=== PATIENT | female | born 1960 | race Caucasian/White ===

== ENCOUNTER → 2016-06-19 | Outpatient (CLI) | payer OTHER ==
[~2016-06-19] MED LIST: MELO7.5T5 PO; PANT40TA PO
[2016-06-19 13:36] LABS: ESTIMATED AVERAGE GLUCOSE 126 mg/dl; HA1C FLAG Normal (Normal)
[2016-06-19 17:54] LABS: ALT/SGPT 94 U/L (12-78); BLOOD UREA NITROGEN 19 mg/dl (7-18); BUN/CREATININE RATIO 24.1 (10-20); CALCIUM 9.4 mg/dl (8.5-10.1); CARBON DIOXIDE 24 mmol/L (21-32); CHLORIDE 104 mmol/L (98-107); CHOLESTEROL 209 mg/dl (0-200); CREATININE 0.78 mg/dl (0.60-1.20); GLUCOSE 102 mg/dl (70-99); POTASSIUM 3.9 mmol/L (3.5-5.1); SODIUM 140 mmol/L (136-145); TRIGLYCERIDES 125 mg/dl (0-150); VERY LOW DENSITY LIPOPROT CALC 25 mg/dl
[2016-06-19 18:04] LABS: ALB/GLOB RATIO 0.9 (0.9-2); ALKALINE PHOSPHATASE 79 U/L (45-117); AST/SGOT 60 U/L (15-37); CHOLESTEROL/HDL RATIO 3.6; HDL CHOLESTEROL 58 mg/dl; LDL CHOLESTEROL CALCULATED 126 mg/dl
== END | disposition home or self-care (01) ==
LOC: C.LABPBG 11:22
PROVIDERS: ATTEND Internal Medicine
DX: Z11.59 Encounter for screening for other viral diseases (principal); E04.1 Nontoxic single thyroid nodule

== ENCOUNTER → 2016-06-21 | Outpatient (CLI) | payer OTHER | END | disposition home or self-care (01) | LOC: C.LABPBG 08:44 | PROVIDERS: ATTEND Internal Medicine | DX: R94.5 Abnormal results of liver function studies (principal) ==

== ENCOUNTER → 2016-06-23 | Outpatient (CLI) | payer OTHER ==
--- NOTE | 2016-06-23 12:58 | DIAGNOSTIC IMAGING REPORT ---
ULTRASOUND RIGHT UPPER QUADRANT ABDOMEN CLINICAL HISTORY: Elevated hepatic transaminases. COMPARISON STUDY: Abdominal CT dated 01/28/2015. TECHNIQUE: Real-time, grayscale, and color flow sonography of the right upper quadrant of the abdomen was performed. Images are reviewed in the transverse and longitudinal planes. FINDINGS: Liver: The liver is enlarged and demonstrates heterogeneously increased echotexture consistent with severe hepatic steatosis. There is minimal central intrahepatic biliary ductal dilatation. The main portal vein is patent. Gallbladder: The gallbladder is surgically absent. The common bile duct measures up to 0.6 cm in diameter. Pancreas: Visualized portions of the pancreatic head and body are normal in appearance. Right kidney: Survey images of the right kidney demonstrate mild cortical atrophy. There is no hydronephrosis. Ascites: None. IMPRESSION: 1. Hepatomegaly and severe hepatic steatosis. 2. The gallbladder surgically absent. Electronically signed by: Lauro Gonzalez M.D. 06/23/2016 12:57 PM Dictated Date/Time: 06/23/2016 12:55 PM
== END | disposition home or self-care (01) ==
LOC: C.ULTRBC 12:20
PROVIDERS: ATTEND Internal Medicine
DX: R94.5 Abnormal results of liver function studies (principal); R16.0 Hepatomegaly, not elsewhere classified; K76.0 Fatty (change of) liver, not elsewhere classified; Z90.49 Acquired absence of other specified parts of digestive tract

== ENCOUNTER → 2016-08-16 | Outpatient (CLI) | payer OTHER ==
[~2016-08-16] MED LIST changes: +CHOL100010 PO; +CINNAMON PO; +CYAN10005 PO
== END | disposition home or self-care (01) ==
LOC: C.PAPS 12:06
PROVIDERS: ATTEND Obstetrics & Gynecology
DX: Z12.4 Encounter for screening for malignant neoplasm of cervix (principal); R10.32 Left lower quadrant pain

== ENCOUNTER → 2016-08-18 | Outpatient (CLI) | payer OTHER ==
--- NOTE | 2016-08-19 05:44 | PAP/PSG TECHNICIAN REPORT ---
[facility] Ware Cleaner Polysomnogram Report Study name: None Report date: 08/19/2016 Study date: 08/18/2016 Referring Physician: Dr. Sofia Kamara Name: VLAD LICONA Interpreting Physician: Chris Murillo D.O. Date of : 1960 Ware Cleaner: Jose Renee RPSGT. Sex: Female Age: 56 StudyType: PSG Weight: 209 lbs Height: 56 years, Height 5' 7" BMI: 32.73 Medications: PANTOPRAZOLE SODIUM 40 MG, VITAMIN B-COMPLEX, Patient History PATIENT HAS HISTORY OF FATIGUE, SNORING AND DAYTIME SLEEPINESS. ALSO HAS HISTORY OF CHRONIC INSOMNIA AND USUALLY TAKES NAPS DUIRNG THE DAY. SHE IS HERE TODAY FOR AN EVALUATION OF SOLE. ESS = 20 RM 8 Parameters Monitored NPSG: E1-M2, E2-M1, Fp1-M2, Fp2-M1, F3-M2, F4-M2, F4-M1, C3-M2, C4-M2, C4-M1, O1-M2, O2-M2, O2-M1, T3-M2, T4-M1, P3-M2, P4-M1, CHIN1, CHIN2, HR, EKG, Legs, PFLOW, SNOR, FLOW, CFLOW, Tidal Volume, THOR, ABDO, SpO2, PLTH, CPRESS, ETCO2 Wave, ETCO2, pH Sleep Architecture Sleep Stages Time at Lights Off 9:33:37 PM STAGES Time (min.) TST (%) Time at Lights On 5:04:07 AM Wake 86.0 -- Total Recording Time (TRT) 451.00 min. N1 13.0 4 Total Sleep Period (TSP) 415.5 min. N2 183.5 50 Total Sleep Time (TST) 364.5min. N3 88.0 24 Awake Time 86.5 min. REM 80.0 22 Wake after Sleep Onset 54.0 min. Sleep Efficiency (SE) 81 % Sleep Onset Latency (MO) 32.0 min. Number of Stage 1 Shifts None Awakenings 21 Stage Changes 85 Number of REM periods 9 REM 80.0 22 REM Latency 45.0 min. NREM 284.5 78 Body Position Analysis Supine Right Left Side Prone Vertical Total Sleep Time (min.) 171.8 88.5 169.3 257.84 0.0 0.0 Total Sleep Time (%) 29% 24% 46% 71 0% N/A% Total Sleep Time REM (min.) 18.5 4.0 57.5 None 0.0 0.0 Total Sleep Time NREM (min.) 88.2 84.5 111.8 None 0.0 0.0 Intermittent Wake (min.) 65.1 9.6 11.3 None 0.0 0.0 Total Sleep Period (%) 34% None None None None None Arousals Myoclonus (PLM) * Events Count Index Events Count Index Spontaneous 23 4 Events Awake (PLMW) 118 82.3 Respiratory 5 0.8 Events Asleep w/ Arousal (PLMA) 25 4.1 PLM 24 4 Events Asleep w/o Arousal (PLMS) 80 13.2 Snoring 2 0 Total Asleep 105 17.3 Total 54 9 Total 223 30 Respiratory Analysis * CA OA MA CH H RERA Total Count 0 1 0 0 27 1 28 Index 0.0 0.2 0.0 0 4.4 0 4.8 Mean Duration 0.0 11.6 0.0 0.00 17.7 18.8 17.6 Longest Duration 0.0 11.6 0.0 0.00 0.0 18.8 24.7 Respiratory Event Summary Total Supine ~Supine Right Left Prone REM NREM Apneas Count 1 1 0 0 0 N/A 0 1 Index 0.2 1 0 0.0 0.0 N/A 0 0 Hypopneas (4% Desat) Count 27 18 9 0 9 N/A 16 11 Index 4.4 10.1 2 0.0 3.2 N/A 12.0 2.3 Apneas & All Hypopneas Count 28 19 9 0 9 N/A 16 12 Index 4.6 11 2 0 3 N/A 12.0 2.5 Respiratory Events (Heel Varnisher+All Hyp+RERA) Count 28 19 10 0 10 N/A 16 12 Index 4.8 11 2 0.0 3.5 N/A 12.0 2.7 Respiratory Related Arousal Count 5 19 2 0 2 N/A 1 4 Index 0.8 2 0 0 1 N/A 1 1 Snoring Analysis Supine Right Left Prone REM NREM Total Snore duration 1.6 min Snores count 7 1 25 N/A 15 18 33 Snore mean duration 2.8 Sec Snores index 4 1 9 N/A 11.3 3.8 5.4 TST with snoring (%) 0.4% Desaturation Event Summary: Minimum %SpO2 Event Count Mean/Min/Max Duration(sec.) Desaturation Index % Time In Bed > 90 30 33.4 / 16.0 / 60.0 4.4 90.2 86 - 90 1 11.5 / 11.5 / 11.5 1.4 9.7 81 - 85 0 N/A 0.0 0.1 76 - 80 0 N/A 0.0 0.0 71 - 75 0 N/A 0.0 0.0 66 - 70 0 N/A 0.0 0.0 61 - 65 0 N/A 0.0 0.0 56 - 60 0 N/A 0.0 0.0 51 - 55 0 N/A 0.0 0.0 < 50 0 N/A 0.0 0.0 Total REM NREM Awake <50% 0.0 min. 0.0 min. 0.0 min. 0.0 min. 51 - 60% 0.0 min. 0.0 min. 0.0 min. 0.0 min. 61 - 70% 0.0 min. 0.0 min. 0.0 min. 0.0 min. 71 - 80% 0.0 min. 0.0 min. 0.0 min. 0.0 min. 81 - 90% 44.3 min. 7.1 min. 34.1 min. 3.1 min. 91 - 100% 406.0 min. 72.9 min. 250.4 min. 82.7 min. Average 92 93 92 92 Minimum SpO2 82 82 85 83 Desaturation Event Index 4.1 11.3 2.7 2.1 # Desat. Events below 89% 8 3 4 1 Time(%) with Saturation below 89% 0.6 0.4 0.2 0.1 Time(min.) with Saturation below 89% 2.9 1.6 1.0 0.3 Time (mins) REM (mins) NREM (mins) % of TST SpO2 Below 90% 21 8 N13 2.7 SpO2 Below 88% 3 0 0 0 Heart Rate Analysis Min (bpm) Max (bpm) Average (bpm) Awake 43 96 53 NREM 41 91 50 REM 45 85 54 Overall 41 91 51 Supplemental O2 Values Minimum O2 level: None Value Start Time End Time Ware Cleaner Comments Ms. Licona slept in the right, left and supine positions. No cardiac arrhythmia noted. Leg movements noted. No bruxism noted. Snoring was noted and scored as a 1 on a scale of 1 through 5. (0=no snoring, 5=snoring loud enough to be heard through a closed door or down the [address] way) Ms. Licona awoke to use the restroom 0 time during the night. Ms. Licona stated I slept as well as I do when I am in my own bed. The final report will be interpreted and signed by a sleep physician. The completed physician report will then be placed in the patient medical record. Therapy (cm H2O) 0 TIB (min.) 450.5 TST (min.) 364.5 Sleep Onset (min.) 32.0 REM Onset From Sleep (min.) 45.0 Sleep Efficiency % 81 Wakefulness (%) 19 Wakefulness (min.) 86.5 NREM 1 (%) 4 NREM 1 (min.) 13.0 NREM 2 (%) 50 NREM 2 (min.) 183.5 NREM 3 (%) 24 NREM 3 (min.) 88.0 REM (%) 22 REM (min.) 80.0 # Arousals 54 Arousal Index 9 # Snore 33 Snore Index 5.4 AHI 4.6 AHI Supine 11 AHI Non-Supine 2 NREM AHI 2.5 REM AHI 12.0 RDI 4.8 # Obstructive Apnea 1 # Central Apnea 0 # Mixed Apnea 0 # Hypopneas 27 RERAs 1 Total Respiratory Events 29 Time Below SpO2 89% (min.) 2.6 Mean NREM SpO2 (%) 92 Mean REM SpO2 (%) 93 Mean Sleep SpO2 (%) 92 Min NREM SpO2 (%) 85 Min REM SpO2 (%) 82 Position Supine (min.) 171.8 Position Non-supine (min.) 257.8 LM Index Sleep 17.3 LM Index NREM 13.9 LM Index REM 29.3 Mean Heart Rate (bpm) 51 Min Heart Rate (bpm) 41
--- NOTE | 2016-08-22 02:09 | POLYSOMNOGRAPH REPORT ---
REFERRING PHYSICIAN: Dr. Greg Kamara. CLINICAL DATA: The patient is a 56-year-old female, who has complaints of fatigue, snoring, and excessive daytime somnolence. She completed the [place] sleepiness scale and had a score of 20, which would suggest severe daytime somnolence. There is also a history of chronic insomnia. This was an in-lab sleep study. SLEEP ARCHITECTURE: The total sleep period was 415.5 minutes. The total sleep time was 364.5 minutes. The sleep efficiency was mildly reduced at 81%. Sleep onset latency was 32 minutes. Wake after sleep onset was 54 minutes. Sleep consisted of stage N1 4%, stage N2 50%, stage N3 24%, stage REM 22%. AROUSAL DATA: The patient had a total of 54 arousals, including 23 spontaneous arousals, 5 respiratory arousals, 24 PLM arousals, and 2 snoring arousals. The arousal index is 9. PLM DATA: The patient had 105 periodic limb movements of sleep for an index of 17.3. There were 25 arousals for a PLM arousal index of 4.1. She also had 118 limb movements during wake. EKG: The underlying cardiac rhythm was normal sinus. The cardiac rates ranged from 41-91 beats per minute with an average of 51 beats per minute. No arrhythmias were noted. RESPIRATORY DATA: The patient had a total of 28 respiratory events, including 1 obstructive apnea and 27 hypopneas. Hypopneas were scored by the 4% desaturation rule. The apnea-hypopnea index was 4.6 events per hour, which is at the upper limits of normal. This would not suggest significant sleep apnea. The apnea was 11.6 seconds in length. The mean duration of the hypopneas was 17.7 seconds. OXIMETRY DATA: The patient's average saturation was 92%. The minimum saturation was 82%. There were just transient desaturations with a total of 2.9 minutes less than 89%. ANALYTICAL STATISTICIAN'S COMMENTS: Ms. Licona slept in the right, left, and supine positions. Leg movements were noted. No bruxism noted. Snoring was noted and scored as a 1 on a scale of 1 through 5. IMPRESSION: 1. Primary snoring. 2. Periodic limb movement disorder. 3. Insomnia, by history. COMMENTS: This study showed no significant sleep apnea. She did have a moderate number of limb movements with a small number of arousals. It is unlikely the leg movements are the primary cause of her daytime somnolence. Clinical correlation may need to be done in this regard. It is unknown if she has symptoms to suggest restless legs in the evening. The patient did have some difficulty initiating sleep. She only had approximately 1 minute of sleep in the first hour of the night. It is unknown if the patient practices good sleep hygiene. It does not appear that she is taking any medicines that would contribute to daytime sleepiness. RECOMMENDATIONS: 1. The patient should be advised of the appropriate principles of sleep hygiene. This would include allowing approximately 7.5 hours of sleep time per night and having a fairly regular sleep-wake schedule. 2. Consideration is given to having the patient complete sleep logs for approximately 2 weeks to evaluate her sleep habits. 3. She does have an elevated body mass index of 32.73. A weight reduction program would be advised. Typically one has less respiratory events and snoring following weight loss. 4. Other medical reasons for excessive daytime somnolence could be sought for. This is deferred to her primary physician. ANYI
== END | disposition home or self-care (01) ==
LOC: C.NEUR 20:00
PROVIDERS: ATTEND Internal Medicine
DX: F51.04 Psychophysiologic insomnia (principal); R06.83 Snoring

== ENCOUNTER → 2016-11-23 | Outpatient (CLI) | payer OTHER ==
[~2016-11-23] MED LIST changes: -CHOL100010 PO; -CINNAMON PO; -CYAN10005 PO
[2016-11-23 12:52] LABS: ESTIMATED AVERAGE GLUCOSE 120 mg/dl; HA1C FLAG Normal (Normal)
[2016-11-23 13:07] LABS: ALKALINE PHOSPHATASE 69 U/L (45-117); ALT/SGPT 33 U/L (12-78); AST/SGOT 18 U/L (15-37); BLOOD UREA NITROGEN 18 mg/dl (7-18); CALCIUM 9.1 mg/dl (8.5-10.1); CARBON DIOXIDE 29 mmol/L (21-32); CHLORIDE 108 mmol/L (98-107); CHOLESTEROL 214 mg/dl (0-200); CREATININE 0.85 mg/dl (0.60-1.20); GLUCOSE 101 mg/dl (70-99); POTASSIUM 3.8 mmol/L (3.5-5.1); SODIUM 142 mmol/L (136-145)
[2016-11-23 13:10] LABS: ALB/GLOB RATIO 0.9 (0.9-2); CHOLESTEROL/HDL RATIO 3.5; HDL CHOLESTEROL 61 mg/dl; LDL CHOLESTEROL CALCULATED 133 mg/dl; TRIGLYCERIDES 102 mg/dl (0-150); VERY LOW DENSITY LIPOPROT CALC 20 mg/dl
== END | disposition home or self-care (01) ==
LOC: C.LABPBG 07:46
PROVIDERS: ATTEND Internal Medicine
DX: R94.5 Abnormal results of liver function studies (principal); R10.32 Left lower quadrant pain; R73.09 Other abnormal glucose

== ENCOUNTER → 2016-11-27 | Outpatient (CLI) | payer OTHER ==
--- NOTE | 2016-11-27 10:28 | DIAGNOSTIC IMAGING REPORT ---
GI SERIES W/AIR ROUTINE CLINICAL HISTORY: ABDOMINAL CRAMPINGpain. Dysphagia. COMPARISON STUDY: None FLUOROSCOPY TIME: 2 minutes. FINDINGS: Patient initiates swallowing function well. Esophagus is normal in course and caliber. Gastroesophageal junction is unremarkable. Size and configuration stomach are normal. The duodenal bulb fills well and is negative for ulceration. Duodenal sweep is unremarkable. IMPRESSION: Negative study The above report was generated using voice recognition software. It may contain grammatical, syntax or spelling errors. Electronically signed by: Robbie Larios M.D. 11/27/2016 10:27 AM Dictated Date/Time: 11/27/2016 10:26 AM
--- NOTE | 2016-11-27 10:42 | DIAGNOSTIC IMAGING REPORT ---
ABDOMEN COMPLETE (US) HISTORY: Pain. Nausea. R10.9 Abdominal [id number]. COMPARISON: 06/23/2016 FINDINGS: Pancreas: The pancreas demonstrates a normal echotexture. Liver: Fatty infiltration. Gallbladder: Surgically absent CBD: 6 mm Kidneys: No hydronephrosis. Spleen: Mild prominence of 14 cm Aorta: Normal in caliber. IVC: Patent. IMPRESSION: 1. Fatty infiltration of liver. 2. Prior cholecystectomy. 3. Mild splenomegaly. The above report was generated using voice recognition software. It may contain grammatical, syntax or spelling errors. Electronically signed by: Robbie Larios M.D. 11/27/2016 10:41 AM Dictated Date/Time: 11/27/2016 10:37 AM
== END | disposition home or self-care (01) ==
LOC: C.ULTR 08:51
PROVIDERS: ATTEND Internal Medicine
DX: R10.9 Unspecified abdominal pain (principal); K76.0 Fatty (change of) liver, not elsewhere classified

== ENCOUNTER → 2017-01-04 | Outpatient (CLI) | payer OTHER ==
--- NOTE | 2017-01-04 12:39 | DIAGNOSTIC IMAGING REPORT ---
KUB CLINICAL HISTORY: K52.9 Chronic [id number] pain. Bowel change. COMPARISON STUDY: No previous studies for comparison. FINDINGS: The soft tissues, psoas shadows, renal outlines and intestinal gas pattern appear normal. There is no evidence for bowel obstruction. No abnormal abdominal calcifications are seen. IMPRESSION: Normal study. The above report was generated using voice recognition software. It may contain grammatical, syntax or spelling errors. Electronically signed by: Robbie Larios M.D. 01/04/2017 12:38 PM Dictated Date/Time: 01/04/2017 12:37 PM
[2017-01-08 06:38] LABS: IGA SERUM 219 mg/dL (81-463); TIS TRANS IGA 1 U/mL (<4)
== END | disposition home or self-care (01) ==
LOC: C.RAD1850 11:28
PROVIDERS: ATTEND Registered Nurse
DX: K52.9 Noninfective gastroenteritis and colitis, unspecified (principal)

== ENCOUNTER 2017-03-11 10:48 | Emergency (ER) | payer OTHER ==
[~2017-03-11] VITALS: Ht 167.6 cm; Wt 89.4 kg
[~2017-03-11 10:48] MED LIST changes: +CHOL100010 PO; +CINNAMON PO; -MELO7.5T5 PO
[2017-03-11 11:09] VITALS: BP 126/76; PULSE 83; TEMP 37; O2SAT 95; Ht 167.6 cm; Wt 89.4 kg
--- NOTE | 2017-03-11 11:25 | EMERGENCY ROOM VISIT NOTE ---
ED Visit Note First contact with patient: 11:15 CHIEF COMPLAINT: Tick in the right groin HISTORY OF PRESENT ILLNESS: Patient is a 57-year-old white female who presents to the emergency department for evaluation of a tick embedded in the right groin. She noticed it this morning when she was getting out of the shower. She was in her shot yesterday getting [employer] decorations, and believes that is when the tick was able to get on her. When she noticed it this morning, she covered it with Vaseline and a Band-Aid. It has been on for less than 24 hours. REVIEW OF SYSTEMS: Review of systems as per HPI. All other systems reviewed were negative. At least 3 systems reviewed. PMH: Electronic medical records are reviewed and summarized as above/below. See Problem List. SOCIAL HISTORY: Patient lives at home. PHYSICAL EXAM: There is an intact tick on the right inguinal. There is a small zone of inflammation around it. EMERGENCY DEPARTMENT COURSE: The intact tick was removed with the Tick Twister device. Bacitracin and bandaid were applied. The patient tolerated the procedure well. She does not require antibiotic prophylaxis. Medication reconciliation: I attest that I have personally reviewed the patient' s current medication list. Blood pressure screening : Patient was found to have normal blood pressure on screening and does not require follow-up. Problem List Medical Problems: (1) Fibroid Status: Resolved (2) Intractable back pain Status: Resolved (3) Kidney stone Status: Resolved (4) Menorrhagia Status: Resolved (5) Reflux Esophagitis Status: Chronic (6) Right flank pain Status: Resolved (7) Right ovarian cyst Status: Resolved Surgical Problems: (1) History of cholecystectomy Status: Resolved (2) Tubal Ligation Status Status: Resolved Current/Historical Medications Scheduled Cholecalciferol (Vitamin D), 1 TAB PO QAM Pantoprazole (Protonix), 40 MG PO QAM [Cinnamon], 1,000 MG PO QAM Allergies Coded Allergies: Penicillins (Verified Allergy, Severe, HIVES TONGUE SWELLING, 02/26/17) Sulfa Antibiotics (Verified Allergy, Severe, HIVES SWELLING OF TONGUE, ) Amoxicillin (Verified Allergy, Unknown, BLISTER AND TONGUE SWELLS, ) Vital Signs Date Time Temp Pulse Resp B/P (MAP) Pulse Ox O2 Delivery O2 Flow Rate FiO2 03/11/17 11:09 37.0 83 18 126/76 95 Room Air Departure Information Impression Primary Impression: Tick bite Referrals Greg Kamara M.D. (PCP) Patient Instructions My [facility] Additional Instructions Keep antibiotic ointment on bite site for 2 days. Use Ibuprofen or Tylenol as needed for pain/discomfort. Watch for signs of infection; increasing redness and swelling, pus like drainage or fevers. Follow up with family physician for continued care and treatment; rashes, bullet lesion, muscle or joint pain or any signs of infection.
[2017-03-12] MEDS ORDERED: CYAN10005 PO (10:35)
[2017-03-12] MEDS ORDERED: LIDOCAINE HCL 2% 2 ML VIAL (20MG/ML) ONE (11:30)
[2017-03-12] MEDS ORDERED: MIDAZOLAM HCL 1 MG/ML 2ML VIAL ONE (11:30)
[2017-03-12] MEDS ORDERED: PROPOFOL IV EMULSION 10 MG/ML 20 ML VIAL IV ONE (11:30)
== END 2017-03-11 11:31 | disposition home or self-care (01) ==
LOC: C.EDB 10:49 → C.EDD 11:31
DX: S30.861A Insect bite (nonvenomous) of abdominal wall, initial encounter (principal); W57.XXXA Bitten or stung by nonvenomous insect and other nonvenomous arthropods, initial encounter; K21.0 Gastro-esophageal reflux disease with esophagitis; Z87.442 Personal history of urinary calculi; Z90.49 Acquired absence of other specified parts of digestive tract; Z98.51 Tubal ligation status; Z79.899 Other long term (current) drug therapy

== ENCOUNTER → 2017-03-12 | Day surgery (SDC) | payer OTHER ==
[2017-02-26 11:25] VITALS: Ht 170.2 cm; Wt 88.6 kg
[~2017-03-12] VITALS: Ht 170.2 cm; Wt 88.6 kg
[~2017-03-12] MED LIST changes: +CYAN10005 PO; +SODIUM CHLORIDE 0.9% 500ML 500 ML IV ONE
--- NOTE | 2017-03-12 11:19 | Endo History and Physical ---
History & Physical Date of Service: Mar 12, 2017. Chief Complaint: Abdominal cramping, diarrhea Referring Physician: Dr. Greg Kamara History of Present Illness 57 yo CF who presents for colonoscopy secondary to abdominal pain and diarrhea. Past Medical History Reflux Past Surgical History Hx Cardiac Surgery: No Hx Internal Defibrillator: No Hx Pacemaker: No Hx Abdominal Surgery: Yes (ALE, TUBAL LIGATION, D&C) Hx of Implantable Prosthesis: No Hx Post-Op Nausea and Vomiting: No Hx Cancer Surgery: No Hx Thoracic Surgery: No Hx Orthopedic: No Hx Urinary Tract Surgery: Yes (CYSTOSCOPY AND STONE REMOVAL) Family History IBD Social History Smoking Status: Never Smoker Hx Substance Use: No Hx Alcohol Use: Yes (OCCASIONALLY) Allergies Coded Allergies: Penicillins (Verified Allergy, Severe, HIVES TONGUE SWELLING, 02/26/17) Sulfa Antibiotics (Verified Allergy, Severe, HIVES SWELLING OF TONGUE, ) Amoxicillin (Verified Allergy, Unknown, BLISTER AND TONGUE SWELLS, ) Current Medications Reported Home Medications Medications Dose Route/Sig Max Daily Dose Days Date Category Vitamin B-12 (Cyanocobalamin) 1,000 Mcg Tab 1,000 Mcg PO DAILY 03/12/17 Reported [Cinnamon] 1,000 Mg PO QAM 02/26/17 Reported Protonix (Pantoprazole Sodium) 40 Mg Tab 40 Mg PO QAM 09/01/14 Reported Vital Signs Weight (Kilograms): 88.64 Height (Feet): 5 Height (Inches): 7 Date Time Temp Pulse Resp B/P (MAP) Pulse Ox O2 Delivery O2 Flow Rate FiO2 03/12/17 10:41 36.9 68 18 145/81 (102) 97 Room Air Physical Exam General Appearance: WD/WN, no apparent distress Respiratory/Chest: Auscultation: breath sounds normal Cardiovascular: Heart Auscultation: RRR Abdomen: Bowel Sounds: normal Inspection & Palpation: soft, non-distended, no tenderness, guarding & rebound Assessment and Plan Assessment: 57 yo CF who presents for colonoscopy secondary to abdominal pain and diarrhea. Plan: Proceed with colonoscopy.
[2017-03-12 12:22] VITALS: BP 129/78; PULSE 60; O2SAT 98
--- NOTE | 2017-03-12 12:25 | GI REPORT ---
Procedure Date: 03/12/2017 11:01 AM Procedure: Colonoscopy Indications: Generalized abdominal pain, Chronic diarrhea Medicines: Monitored Anesthesia Care Complications: No immediate complications. Estimated Blood Loss: Estimated blood loss: none. Procedure: Pre-Anesthesia Assessment: - Prior to the procedure, a History and Physical was performed, and patient medications and allergies were reviewed. The patient's tolerance of previous anesthesia was also reviewed. The risks and benefits of the procedure and the sedation options and risks were discussed with the patient. All questions were answered, and informed consent was obtained. Prior Anticoagulants: The patient has taken no previous anticoagulant or antiplatelet agents. ASA Grade Assessment: II - A patient with mild systemic disease. After reviewing the risks and benefits, the patient was deemed in satisfactory condition to undergo the procedure. After I obtained informed consent, the scope was passed under direct vision. Throughout the procedure, the patient's blood pressure, pulse, and oxygen saturations were monitored continuously. The scope was introduced through the anus and advanced to the terminal ileum. The colonoscopy was performed without difficulty. The patient tolerated the procedure well. The quality of the bowel preparation was good. The terminal ileum, ileocecal valve, appendiceal orifice, and rectum were photographed. Findings: The perianal and digital rectal examinations were normal. A 4 mm polyp was found in the ascending colon. The polyp was sessile. The polyp was removed with a cold snare. Resection and retrieval were complete. Multiple small-mouthed diverticula were found in the sigmoid colon. Non-bleeding internal hemorrhoids were found during retroflexion. The hemorrhoids were small. Several random biopsies were obtained with cold forceps for histology in the entire colon. Fluid aspiration for cytology was performed in the entire colon. Impression: - One 4 mm polyp in the ascending colon, removed with a cold snare. Resected and retrieved. - Diverticulosis in the sigmoid colon. - Non-bleeding internal hemorrhoids. - Several random biopsies were obtained in the entire colon. - Fluid aspiration was performed. Recommendation: - Resume previous diet. - Continue present medications. - Repeat colonoscopy for surveillance based on pathology results. - Return to primary care physician as previously scheduled. Jovanni Hull DO 03/12/2017 12:25:21 PM This report has been signed electronically. Note Initiated On: 03/12/2017 11:01 AM I attest to the content of the Intraoperative Record and orders documented therein, exceptions below
--- NOTE | 2017-03-12 12:35 | Discharge Instructions ---
Endoscopy Patient Instructions Date / Procedure(s) Performed Mar 12, 2017. Colonoscopy Allergy Information Coded Allergies: Penicillins (Verified Allergy, Severe, HIVES TONGUE SWELLING, 02/26/17) Sulfa Antibiotics (Verified Allergy, Severe, HIVES SWELLING OF TONGUE, ) Amoxicillin (Verified Allergy, Unknown, BLISTER AND TONGUE SWELLS, ) Discharge Date / Findings Mar 12, 2017. Random colon biopsies Stool aspirate collected Colon polyp Diverticulosis Internal hemorrhoids Medication Instructions OK to resume all medications today as prescribed Reported Home Medications Medications Dose Route/Sig Max Daily Dose Days Date Category Vitamin B-12 (Cyanocobalamin) 1,000 Mcg Tab 1,000 Mcg PO DAILY 03/12/17 Reported [Cinnamon] 1,000 Mg PO QAM 02/26/17 Reported Protonix (Pantoprazole Sodium) 40 Mg Tab 40 Mg PO QAM 09/01/14 Reported Provider Instructions Activity Restrictions - No exercising or heavy lifting for 24 hours. - Do not drink alcohol the day of the procedure. - Do not drive a car or operate machinery until the day after the procedure. - Do not make any important decisions or sign important papers in 24 hours after the procedure. Following Day: - Return to full activity which may include returning to work/school. Diet Start your diet with liquids and light foods (jello, soup, juice, toast). Then eat your usual diet if not nauseated. Treatment For Common After Affects For mild abdominal pain, bloating, or excessive gas: - Rest - Eat lightly - Lie on right side Follow-Up Information Follow-up with Dr. Greg Kamara as scheduled Anesthesia Information What You Should Know You have had a procedure that required some medicine to reduce anxiety and discomfort. This treatment is called moderate sedation. After receiving the treatment, you may be sleepy, but you will be able to breathe on your own. The effects of the treatment may last for several hours. Follow these instructions along with Activity/Diet recommendations noted above: * Do NOT do anything where dizziness or clumsiness would be dangerous. * Rest quietly at home today, then you can be up and about tomorrow. * Have a responsible person stay with you the rest of today. * You may have had an I.V. today. If so, you may take the dressing off later today. Recommendations Call your doctor if: * Trouble breathing * Continuous vomiting for more than 24 hours * Temperature above 101 degrees * Severe abdominal pain or bloating * Pain not relieved by pain medicine ordered * There is increased drainage or redness from any incision * A large amount of rectal bleeding greater than 2-3 tablespoons. (If you had a polyp/s removed or have hemorrhoids, a small amount of blood - from the rectum is to be expected.) * You have any unanswered questions or concerns. IN THE EVENT OF A SERIOUS EMERGENCY, GO TO THE NEAREST EMERGENCY ROOM Your discharge instructions were prepared by provider Jovanni Hull. Patient Instructions Signature Page Lindsay Licona Patient (or Guardian) Signature/Date: I have read and understand the instructions given to me by my caregivers. Caregiver/RN/Doctor Signature/Date: The above-named patient and/or guardian has received patient instructions on this date. + Original Patient Signature Page (only) stays with chart. Please make copy for patient.
--- NOTE | 2017-03-12 12:46 | Anesthesiology Progress Note ---
Anesthesia Post Op Note Date & Time Mar 12, 2017 at 12:45 Vital Signs Pain Intensity: 0 Vital Signs Past 12 Hours Date Time Temp Pulse Resp B/P (MAP) Pulse Ox O2 Delivery O2 Flow Rate FiO2 03/12/17 12:22 60 20 129/78 (95) 98 Room Air 03/12/17 12:08 66 18 138/90 (106) 99 Room Air 03/12/17 11:51 74 16 134/84 (101) 98 Room Air 03/12/17 10:41 36.9 68 18 145/81 (102) 97 Room Air Notes Mental Status: alert / awake / arousable, participated in evaluation Pt Amnestic to Procedure: Yes Nausea / Vomiting: adequately controlled Pain: adequately controlled Airway Patency, RR, SpO2: stable & adequate BP & HR: stable & adequate Hydration State: stable & adequate Anesthetic Complications: no major complications apparent
== END | disposition home or self-care (01) ==
LOC: C.GI 10:12
PROVIDERS: ATTEND Internal Medicine
DX: R10.84 Generalized abdominal pain (principal); K52.9 Noninfective gastroenteritis and colitis, unspecified; D12.2 Benign neoplasm of ascending colon; K57.30 Diverticulosis of large intestine without perforation or abscess without bleeding; K64.8 Other hemorrhoids; Z88.0 Allergy status to penicillin; Z88.2 Allergy status to sulfonamides; Z90.49 Acquired absence of other specified parts of digestive tract; Z98.51 Tubal ligation status; Z79.899 Other long term (current) drug therapy; Z98.41 Cataract extraction status, right eye; Z98.42 Cataract extraction status, left eye

== ENCOUNTER → 2017-04-20 | Outpatient (CLI) | payer OTHER ==
[~2017-04-20] MED LIST changes: -CHOL100010 PO; +CHOL2000 PO; +CIPR-255 PO; +ESCI1TAB10 PO; +OMEG-128 PO; -SODIUM CHLORIDE 0.9% 500ML 500 ML IV ONE
== END | disposition home or self-care (01) ==
LOC: C.LABPBG 09:46
PROVIDERS: ATTEND Internal Medicine
DX: N39.0 Urinary tract infection, site not specified (principal)

== ENCOUNTER → 2017-05-25 | Outpatient (CLI) | payer OTHER ==
[~2017-05-25] MED LIST changes: -CHOL2000 PO; -CIPR-255 PO; -ESCI1TAB10 PO; -OMEG-128 PO
--- NOTE | 2017-05-26 05:40 | PAP/PSG TECHNICIAN REPORT ---
[facility] Shareholder Polysomnogram Report Study name: None Report date: 05/26/2017 Study date: 05/25/2017 Referring Physician: Dr. Chris Murillo DO Name: VLAD LICONA Interpreting Physician: Chris Murillo D.O. Date of : 1960 Shareholder: LOIS Jeter. Sex: Female Age: 57 StudyType: PSG Weight: 199.2 lbs Height: 57 years, Height 209' 0" Neck Circum:15.5inches BMI: Medications: Esomeprazole Magnesium 40mg, Vit B Complex Patient History Study started on room air with no ETCO2 monitoring in room #8. 57 yr old female here tonight for a diagnostic psg. She complains of EDS. She has a family history of SOLE. Her ESS=16/24. Neck circ=15.5inches Parameters Monitored NPSG: E1-M2, E2-M1, Fp1-M2, Fp2-M1, F3-M2, F4-M2, F4-M1, C3-M2, C4-M2, C4-M1, O1-M2, O2-M2, O2-M1, T3-M2, T4-M1, P3-M2, P4-M1, CHIN1, CHIN2, HR, EKG, Legs, PFLOW, SNOR, FLOW, CFLOW, Tidal Volume, THOR, ABDO, SpO2, PLTH, CPRESS, ETCO2 Wave, ETCO2, pH Sleep Architecture Sleep Stages Time at Lights Off 10:22:56 PM STAGES Time (min.) TST (%) Time at Lights On 5:25:56 AM Wake 42.5 -- Total Recording Time (TRT) 423.00 min. N1 21.0 6 Total Sleep Period (TSP) 402.5 min. N2 212.0 56 Total Sleep Time (TST) 380.5min. N3 72.0 19 Awake Time 42.5 min. REM 75.5 20 Wake after Sleep Onset 24.0 min. Sleep Efficiency (SE) 90 % Sleep Onset Latency (MO) 18.5 min. Number of Stage 1 Shifts None Awakenings 25 Stage Changes 106 Number of REM periods 11 REM 75.5 20 REM Latency 80.5 min. NREM 305.0 80 Body Position Analysis Supine Right Left Side Prone Vertical Total Sleep Time (min.) 135.3 95.3 177.8 273.09 0.0 0.0 Total Sleep Time (%) 28% 25% 47% 72 0% N/A% Total Sleep Time REM (min.) 0.0 38.0 37.5 None 0.0 0.0 Total Sleep Time NREM (min.) 107.4 57.3 140.3 None 0.0 0.0 Intermittent Wake (min.) 27.9 6.0 8.6 None 0.0 0.0 Total Sleep Period (%) 30% None None None None None Arousals Myoclonus (PLM) * Events Count Index Events Count Index Spontaneous 7 1 Events Awake (PLMW) 49 69.2 Respiratory 5 0.8 Events Asleep w/ Arousal (PLMA) 37 5.8 PLM 34 6 Events Asleep w/o Arousal (PLMS) 108 17.0 Snoring 3 0 Total Asleep 145 22.9 Total 49 8 Total 194 28 Respiratory Analysis * CA OA MA CH H RERA Total Count 0 0 0 0 12 3 12 Index 0.0 0.0 0.0 0 1.9 0 2.4 Mean Duration 0.0 0.0 0.0 0.00 16.3 18.7 16.8 Longest Duration 0.0 0.0 0.0 0.00 0.0 23.0 38.9 Respiratory Event Summary Total Supine ~Supine Right Left Prone REM NREM Apneas Count 0 0 0 0 0 N/A 0 0 Index 0.0 0 0 0.0 0.0 N/A 0 0 Hypopneas (4% Desat) Count 12 1 11 4 7 N/A 5 7 Index 1.9 0.6 2 2.5 2.4 N/A 4.0 1.4 Apneas & All Hypopneas Count 12 1 11 4 7 N/A 5 7 Index 1.9 1 2 3 2 N/A 4.0 1.4 Respiratory Events (Research/Program Director+All Hyp+RERA) Count 12 2 13 5 8 N/A 5 7 Index 2.4 1 3 3.1 2.7 N/A 4.8 1.8 Respiratory Related Arousal Count 5 2 4 2 2 N/A 2 3 Index 0.8 1 1 1 1 N/A 2 1 Snoring Analysis Supine Right Left Prone REM NREM Total Snore duration 3.6 min Snores count 88 18 23 N/A 11 118 129 Snore mean duration 1.7 Sec Snores index 49 11 8 N/A 8.7 23.2 20.3 TST with snoring (%) 1.0% Desaturation Event Summary: Minimum %SpO2 Event Count Mean/Min/Max Duration(sec.) Desaturation Index % Time In Bed > 90 16 20.5 / 10.0 / 60.0 2.5 90.9 86 - 90 6 15.0 / 9.3 / 31.0 9.4 9.1 81 - 85 0 N/A 0.0 0.0 76 - 80 0 N/A 0.0 0.0 71 - 75 0 N/A 0.0 0.0 66 - 70 0 N/A 0.0 0.0 61 - 65 0 N/A 0.0 0.0 56 - 60 0 N/A 0.0 0.0 51 - 55 0 N/A 0.0 0.0 < 50 0 N/A 0.0 0.0 Total REM NREM Awake <50% 0.0 min. 0.0 min. 0.0 min. 0.0 min. 51 - 60% 0.0 min. 0.0 min. 0.0 min. 0.0 min. 61 - 70% 0.0 min. 0.0 min. 0.0 min. 0.0 min. 71 - 80% 0.0 min. 0.0 min. 0.0 min. 0.0 min. 81 - 90% 38.5 min. 6.0 min. 28.9 min. 3.6 min. 91 - 100% 384.3 min. 69.5 min. 276.1 min. 38.8 min. Average 92 92 92 92 Minimum SpO2 88 88 88 89 Desaturation Event Index 2.4 6.4 1.4 4.2 # Desat. Events below 89% 3 1 2 N/A Time(%) with Saturation below 89% 0.1 0.0 0.1 0.0 Time(min.) with Saturation below 89% 0.4 0.0 0.4 0.0 Time (mins) REM (mins) NREM (mins) % of TST SpO2 Below 90% 11 7 N4 1.4 SpO2 Below 88% 1 0 0 0 Heart Rate Analysis Min (bpm) Max (bpm) Average (bpm) Awake 52 96 65 NREM 47 86 58 REM 51 80 60 Overall 47 86 58 Supplemental O2 Values Minimum O2 level: None Value Start Time End Time Shareholder Comments Mrs. Licona slept in the right, left and supine positions. No cardiac arrhythmia noted. PLM's were noted. No bruxism noted. Snoring was noted and scored as a 1 on a scale of 1 through 5. (0=no snoring, 5=snoring loud enough to be heard through a closed door or down the [address] way) She did not use the restroom during the night. She stated that she slept about the same as usual. She said her left leg was bothering her during the night. It was" crampy". The final report will be interpreted and signed by a sleep physician. The completed physician report will then be placed in the patient medical record. Therapy (cm H2O) 0 TIB (min.) 423.0 TST (min.) 380.5 Sleep Onset (min.) 18.5 REM Onset From Sleep (min.) 80.5 Sleep Efficiency % 90 Wakefulness (%) 10 Wakefulness (min.) 42.5 NREM 1 (%) 6 NREM 1 (min.) 21.0 NREM 2 (%) 56 NREM 2 (min.) 212.0 NREM 3 (%) 19 NREM 3 (min.) 72.0 REM (%) 20 REM (min.) 75.5 # Arousals 49 Arousal Index 8 # Snore 129 Snore Index 20.3 AHI 1.9 AHI Supine 1 AHI Non-Supine 2 NREM AHI 1.4 REM AHI 4.0 RDI 2.4 # Obstructive Apnea 0 # Central Apnea 0 # Mixed Apnea 0 # Hypopneas 12 RERAs 3 Total Respiratory Events 17 Time Below SpO2 89% (min.) 0.4 Mean NREM SpO2 (%) 92 Mean REM SpO2 (%) 92 Mean Sleep SpO2 (%) 92 Min NREM SpO2 (%) 88 Min REM SpO2 (%) 88 Position Supine (min.) 135.3 Position Non-supine (min.) 273.1 LM Index Sleep 22.9 LM Index NREM 22.4 LM Index REM 24.6 Mean Heart Rate (bpm) 58 Min Heart Rate (bpm) 47
--- NOTE | 2017-06-03 12:02 | Sleep Study ---
Sleep Study Report Date of Service: 05/25/2017 Sleep Study Report CLINICAL DATA: The patient is a 57-year-old female with a history of tiredness and excessive daytime somnolence. Her [place] Sleepiness Scale score is 16 out of a possible 24. A diagnostic sleep study was previously done 08/18/2016. This showed an apnea-hypopnea index of 4.6 which would be at the upper limits of normal. In light of the fact she has had persistent symptoms a repeat study is being done. She has a BMI of 31.19. SLEEP ARCHITECTURE: The sleep period time was 402.5 minutes. Total sleep time was 380.5 minutes. Sleep efficiency was normal at 90 percent. Sleep latency was 18.5 minutes. Wake after sleep onset was 24 minutes. The REM latency was normal at 80.5 minutes. Sleep consisted of stage N1 6 percent, stage N2 56 percent, stage N3 19 percent, stage REM 20 percent. AROUSAL DATA: The patient had 49 arousals including 7 spontaneous arousals, 5 respiratory arousals, 34 PLM arousals, and 3 snoring arousals. The arousal index was 8. PLM DATA: The patient had 145 periodic limb movements of sleep for a PLM index of 22.9. There were 37 arousals associated with limb movements for a PLM arousal index of 5.8. EKG: The cardiac rates 47-86 beats per minute. No cardiac arrhythmia noted. RESPIRATORY DATA: Patient had a total of 12 respiratory events, all hypopneas. Hypopneas were scored according to the 4 percent desaturation rule. The mean duration of the hypopneas was 16.3 seconds. She also had 3 RERAs. The apnea-hypopnea index was normal at 1.9 events per hour. This would suggest no significant sleep apnea. OXIMETRY DATA: The average saturation was 92 percent. The minimum saturation was 88 percent. There was 0.4 minutes with saturations less than 89 percent. CARD FEEDER COMMENTS: The patient slept on the right, left, and supine positions. No cardiac arrhythmia noted. PLMS were noted. No bruxism noted. Snoring was noted and scored as a 1 on a scale 1 through 5. She did not use the restroom during the night. IMPRESSIONS: 1. No evidence of significant sleep apnea 2. Periodic limb movement disorder COMMENTS: The patient once again does not show evidence of definitive sleep apnea. She had very few respiratory events. There was a modest number of limb movements. She had given a history of having some restless legs in bed. It is unclear if the limb movement disorder might be accounting for her symptoms. Consideration could be given to a trial of medication for the limb movement disorder. Likewise a serum ferritin level could be done in the event she has iron deficiency which might be causing the limb movements. RECOMMENDATIONS: 1. Consideration could be given to treatment of the underlying limb movement disorder with medications such as pramipexole. Clinical correlation would then be required to determine if this improved her sleep quality and her daytime sleepiness. 2. Consideration could be given to an evaluation of the underlying depression and or anxiety. 3. Weight loss is advised in light of the elevation of body mass index at 31.19. 4. Serum ferritin level Copies To 1: Chris Murillo DO; Greg Kamara M.D.
== END | disposition home or self-care (01) ==
LOC: C.NEUR 20:00
PROVIDERS: ATTEND Internal Medicine Pulmonary Disease
DX: G47.61 Periodic limb movement disorder (principal)

== ENCOUNTER → 2017-08-06 | Outpatient (CLI) | payer OTHER | END | disposition home or self-care (01) | LOC: C.LABPBG 10:25 | PROVIDERS: ATTEND Internal Medicine | DX: R53.83 Other fatigue (principal) ==

== ENCOUNTER → 2017-09-05 | Outpatient (CLI) | payer OTHER | END | disposition home or self-care (01) | LOC: C.LABPBG 08:44 | PROVIDERS: ATTEND Physician Assistant | DX: Z13.21 Encounter for screening for nutritional disorder (principal); R53.83 Other fatigue ==

== ENCOUNTER 2021-03-15 05:41 | Inpatient (IN) ==
--- NOTE | 2021-01-07 15:57 | PAT Medication Instructions ---
Medication Instructions Date of Service January 07, 2021 Home Medications Medication Instructions Recorded oxycodone-acetaminophen 5 mg-325 1 tab PO Q8H PRN #5 tab 01/06/21 mg tablet (Percocet) ciprofloxacin HCl 500 mg tablet 500 mg PO BID 2 Days #4 tab 01/07/21 aspirin 81 mg tablet,delayed release (Adult Aspirin Regimen) 81 mg PO QAM meloxicam 7.5 mg tablet 7.5 mg PO QAM albuterol sulfate 90 mcg/actuation aerosol inhaler 1 inh INHALATION QID PRN oxycodone-acetaminophen 5 mg-325 mg tablet (Percocet) 1 tab PO Q8H PRN pantoprazole 40 mg tablet,delayed release 40 mg PO QAM ciprofloxacin HCl 500 mg tablet 500 mg PO BID Continue as directed ciprofloxacin HCl 500 mg tablet 500 mg PO BID ASK your surgeon for instructions meloxicam 7.5 mg tablet 7.5 mg PO QAM ASK your prescriber and surgeon aspirin 81 mg tablet,delayed release (Adult Aspirin Regimen) 81 mg PO QAM Take morning of surgery With a small sip of water, OTHERWISE NOTHING TO EAT OR DRINK AFTER MIDNIGHT: albuterol sulfate 90 mcg/actuation aerosol inhaler 1 inh INHALATION QID PRN (use if needed; please bring rescue inhaler with you to hospital day of surgery if possible) oxycodone-acetaminophen 5 mg-325 mg tablet (Percocet) 1 tab PO Q8H PRN (okay to take up to 4 hours prior to surgery if needed) pantoprazole 40 mg tablet,delayed release 40 mg PO QAM Take evening before surgery albuterol sulfate 90 mcg/actuation aerosol inhaler 1 inh INHALATION QID PRN (if needed) oxycodone-acetaminophen 5 mg-325 mg tablet (Percocet) 1 tab PO Q8H PRN (if needed) Other Notes If you have any questions please call us at [phone] or [phone] or [phone] or [phone]
--- NOTE | 2021-01-11 10:32 | Anesthesiology Consultation ---
Date of Service January 11, 2021 Assessment & Plan (1) Encounter for pre-operative examination: COVID screening: Per assessment on 01/11: Travel screen negative, no known COVID- 19 positive contacts or current COVID-19 related symptoms. Surgeon arranging preop COVID testing (scheduled 01/14; [facility]). Awaiting results. Chart Review Chart Review: Acceptable Risk for Surgery and Patient seen in Pre Admission Testing Teaching & Discussion Pre-Anesthesia Teaching/Discussion Notes: Instructed NPO after midnight before surgery,except medications with 15 cc of water. Medication instructions provided according to the PAT guidelines. History Surgery Operation Date: 01/18/21 11:20 Proposed Procedures p Robotic Pyeloplasty Left - Harish Mendoza MD Height/Weight Height: 5 ft 6 in Weight: 96.615 kg Allergies Allergy/AdvReac Type Severity Reaction Status Date / Time Penicillins Allergy Severe Tongue Verified 01/07/21 15:58 swelling, hives Sulfa (Sulfonamide Allergy Severe Tongue Verified 01/07/21 15:58 Antibiotics) swelling, hives amoxicillin Allergy Unknown Tongue Verified 01/07/21 15:58 swelling, blistering Medications Home Medications Medication Instructions Recorded Confirmed Last Taken aspirin 81 mg tablet,delayed 81 mg PO QAM 12/08/19 01/09/21 01/06/21 release (Adult Aspirin Regimen) meloxicam 7.5 mg tablet 7.5 mg PO QAM 11/24/20 01/09/21 01/06/21 albuterol sulfate 90 mcg/actuation 1 inh INHALATION QID PRN 01/06/21 01/09/21 Unknown aerosol inhaler oxycodone-acetaminophen 5 mg-325 1 tab PO Q8H PRN #5 tab 01/06/21 01/09/21 01/06/21 mg tablet (Percocet) pantoprazole 40 mg tablet,delayed 40 mg PO QAM 01/06/21 01/09/21 01/06/21 release ciprofloxacin HCl 500 mg tablet 500 mg PO BID 2 Days #4 tab 01/07/21 01/09/21 01/08/21 Past Medical History Medical History Arthritis Bronchitis Seasonal hx, reason for inhaler PRN per pt, no recent issues/inhaler use Depression Hx GERD (gastroesophageal reflux disease) controlled Hypothyroidism Remote hx, euthyroid labs/no meds Kidney stone Hx Thyroid nodule s/p biopsy (benign) Exercise / Class Metabolic Activity III < 4 Walking/Shop/Light housework (one FS (no CP, no SOB)) Past Family History Family History Sister Family history of reaction to anesthesia SLOW TO WAKE UP Denies family history of Ovarian cancer Prostate cancer Breast cancer Lung cancer Colorectal cancer Past Surgical History Surgical History H/O tubal ligation History of cataract surgery R/L History of cholecystectomy History of colonoscopy History of cystoscopy with pyeloscopy with removal of calculus History of surgery Percutaneous lithotomy Past Anesthesia History No Hx of Anesthesia Complications Sister- "slow to wake" History of PONV No Hx of PONV and Hx of Motion Sickness Social History Smoking Status: Never smoker Do You Dip or Chew Tobacco: No Hx Alcohol Use: No Hx Substance Use: No Review of Systems Seasonal allergies- occasional post nasal drip. Patient denies chest pain, shortness of breath, fever, chills, cough, wheezing, palpitations. Physical Exam Vital Signs VITALS BP 148/86 P 67 TEMP 97.9 SP02 98%RA RESP 18 PHYSICAL Full cervical extension range of motion. Full TMJ range of motion. TMD 3.5 finger breaths Mallampati Score 2 Dentition: partial upper Lungs: clear throughout to auscultation Cardiac: regular rate and rhythm, no murmurs noted Spine: normal Carotid arteries: negative bruit Extremities: no edema Lab Results Anesthesia Preop Results Results Anesthesia Widget: WBC 6.31 K/uL (4.8-10.8) 01/09/21 Hgb 11.8 g/dL (12.0-16.0) L 01/09/21 Hct 36.7 % (37-47) L 01/09/21 Plt 188 K/uL (130-400) 01/09/21 Na 140 mmol/L (136-145) 01/09/21 K 3.8 mmol/L (3.5-5.1) 01/09/21 Cl 109 mmol/L (98-107) H 01/09/21 CO2 26 mmol/L (21-32) 01/09/21 BUN 23 mg/dl (7-18) H 01/09/21 Creat 1.03 mg/dl (0.6-1.2) 01/09/21 Glucose Level 113 mg/dl (70-99) H 01/09/21 Urine Color Yellow 01/09/21 Urine Appearance Turbid (Clear) A 01/09/21 Urine pH 5.0 (4.5-7.5) 01/09/21 Urine Specific [place] 1.017 (1.000-1.030) 01/09/21 Urine Protein 2+ (Negative) H 01/09/21 Urine Glucose (UA) Negative (Negative) 01/09/21 Urine Ketones Negative (Negative) 01/09/21 Urine Blood 3+ (Negative) H 01/09/21 Urine Nitrite Negative (Negative) 01/09/21 Urine Bilirubin Negative (Negative) 01/09/21 Urine Urobilinogen Negative (Negative) 01/09/21 Urine Leukocyte Esterase 3+ (Negative) H 01/09/21 Urine WBC (Auto) >30 /hpf (0-5) H 01/09/21 Urine RBC (Auto) >30 /hpf (0-4) H 01/09/21 Urine Hyaline Casts (Auto) 1-5 /lpf (0-5) 01/09/21 Urine Epithelial Cells (Auto) 5-10 /lpf (0-5) H 01/09/21 Urine Bacteria (Auto) Negative (Negative) 01/09/21 Lab Comments: 01/09/21 URINE CULTURE- gram positive bacilli (no sensitivities to follow) Testing Electrocardiogram Date: 01/09/21 NSR at 66bpm. Moderate voltage criteria for LVH, may be normal variant. No significant change compared to 02/16/2009 per parts facilitator review. Chest X-Ray Date: 01/11/21 Findings: + NAD
[~2021-03-15 05:41] MED LIST changes: -CINNAMON PO; +CIPROFLOXACIN / D5W 400 MG/200 ML BAG IV SCH; -CYAN10005 PO; +LR 15ML/HR IV SCH; -PANT40TA PO
[2021-03-15] MEDS ORDERED: LR 15ML/HR IV SCH (06:00)
[2021-03-15] MEDS ORDERED: CIPROFLOXACIN / D5W 400 MG/200 ML BAG IV SCH (06:00)
[2021-03-15] MEDS ORDERED: DEXAMETHASONE SOD INJ 4 MG/ML VIAL ONE (06:40)
[2021-03-15] MEDS ORDERED: fentaNYL citrate 100 MCG/2 ML VIAL ONE ×2 (06:40→09:07)
[2021-03-15] MEDS ORDERED: ROCURONIUM BROMIDE 10 MG/ML 5 ML VIAL IV ONE ×6 (06:40→08:23)
[2021-03-15] MEDS ORDERED: LIDOCAINE 2% 2 ML VIAL/AMP(20MG/ML) INFIL ONE (06:40)
[2021-03-15] MEDS ORDERED: MIDAZOLAM HCL 1 MG/ML 2ML VIAL ONE (06:40)
[2021-03-15] MEDS ORDERED: PROPOFOL IV EMULSION 10 MG/ML 20 ML VIAL IV ONE (06:40)
[2021-03-15] MEDS ORDERED: ONDANSETRON INJ 2 MG/ML 2 ML VIAL ONE (06:40)
[2021-03-15] MEDS ORDERED: BUPIVACAINE 0.5 % 5 MG/1 ML MPF 30ML VIAL ONE (06:42)
[2021-03-15] MEDS ORDERED: ePHEDrine sulfate 50 MG/ML AMP IV PRN (07:16)
[2021-03-15] MEDS ORDERED: ATROPINE SULFATE 0.1 MG/ML 10ML SYR IV PRN (07:16)
[2021-03-15] MEDS ORDERED: HYDROmorphone INJ 2 MG/ML SYR/VIAL IV PRN (07:16)
[2021-03-15] MEDS ORDERED: ONDANSETRON INJ 2 MG/ML 2 ML VIAL IV PRN ×2 (07:16→13:04)
[2021-03-15] MEDS ORDERED: PROMETHAZINE HCL 6.25 MG in SODIUM CHLORIDE 0.9% 50 ML IV PRN (07:16)
--- NOTE | 2021-03-15 07:19 | History & Physical Bridge Note ---
Date of Service March 15, 2021 History & Physical Bridge Note I have examined the patient, reviewed the History & Physical and in the interval since the performance of the History & Physical I have noted the following changes of clinical significance: no changes noted
--- NOTE | 2021-03-15 07:26 | History & Physical Report ---
Date of Service March 15, 2021 Assessment & Plan (1) Hydronephrosis of left kidney: Plan: Plan for L robotic pyeloplasty secondary to symptomatic UPJ obstruction - risks, benefits, and expectations reviewed History of Present Illness Primary Care Provider: Greg Kamara MD 61y/o female w/ L hydro secondary to a UPJ obstruction - MAG 3 with ok function, delayed drainage - more importantly, she has severe, intermittent left flank pain consistent with renal colic Allergies Allergy/AdvReac Type Severity Reaction Status Date / Time Penicillins Allergy Severe Tongue Verified 03/15/21 05:56 swelling, hives Sulfa (Sulfonamide Allergy Severe Tongue Verified 03/15/21 05:56 Antibiotics) swelling, hives amoxicillin Allergy Unknown Tongue Verified 03/15/21 05:56 swelling, blistering Home Medications Medication Instructions Recorded Confirmed Type aspirin 81 mg tablet,delayed 81 mg PO QAM 12/08/19 03/15/21 History release (Adult Aspirin Regimen) meloxicam 7.5 mg tablet 7.5 mg PO QAM 11/24/20 03/15/21 History albuterol sulfate 90 mcg/actuation 1 inh INHALATION QID PRN 01/06/21 03/15/21 History aerosol inhaler pantoprazole 40 mg tablet,delayed 40 mg PO QAM 01/06/21 03/15/21 History release Past Med/Surg History Medical History Arthritis Bronchitis Depression GERD (gastroesophageal reflux disease) Hypothyroidism Kidney stone Thyroid nodule Surgical History H/O tubal ligation History of cataract surgery History of cholecystectomy History of colonoscopy History of cystoscopy History of surgery Family History Sister Family history of reaction to anesthesia Denies family history of Ovarian cancer Prostate cancer Breast cancer Lung cancer Colorectal cancer Social History Smoking Status: Never smoker Second Hand Exposure: No; Do You Dip or Chew Tobacco: No; Tobacco Cessation Education Requested by Patient: No Hx Alcohol Use: No Hx Substance Use: No Preferred Language: Slovak Communication Ability: Effective Visual Impairment: No Limitations Hearing Ability: Normal Hot Mill Roller Required: No Beliefs That Will Affect Care: None marital status: Current Living Situation: Alone current occupational status: employed current occupation: high school coordinator Other Information That Helps Us Care for You: No Feels Safe at Home: Yes Safety Concerns: Feels Safe At This Time Childhood Exposure to Second-Hand Smoke: No caffeine: No during the past year weight has: other Dental Care, Regularly: Yes Physical Activity Frequency: 1-2 Times per Week Physical Activity Frequency Comment: walk Seatbelt Use: always Sunscreen Use: Yes Assistive Devices: Denture - Upper Assistive Devices Comment: PARTIAL Physical Exam Constitutional: well developed and well nourished Neck: neck nontender Respiratory: normal respiratory effort; no respiratory distress and does not use accessory muscles Cardiovascular: Rate/Rhythm: regular rate Vessels: radial pulses present Extremities: no edema Gastrointestinal (Abdomen): Inspection/Auscultation: abdomen normal to inspection Percussion/Palpation: abdomen soft; abdomen nontender and no guarding Musculoskeletal: Head/Neck/Chest: normocephalic and head atraumatic Extremities: extremities normal to inspection Skin: no rashes and no lesions Trauma: no evidence of skin trauma Neurologic: awake; not obtunded Speech / Cognition: normal speech Motor/Sensory: no tremor Psychiatric: Orientation: alert and oriented x 3 Lymphatic: no lymphadenopathy Results & Data ([facility]) Vital Signs (Past 12 Hours) Vital Signs Temp Pulse Resp BP Pulse Ox 03/15/21 06:09 36.7 C 77 18 179/84 H 97
[2021-03-15] MEDS ORDERED: hydrALAZINE HCL 20 MG/ML VIAL ONE (08:38)
[2021-03-15] MEDS ORDERED: NEOSTIGMINE METHYLSULFATE 1 MG/ML 10ML VIAL ONE (10:39)
[2021-03-15] MEDS ORDERED: GLYCOPYRROLATE 0.2 MG/ML VIAL ONE (10:39)
[2021-03-15] MEDS ORDERED: KETOROLAC TROMETHAMINE 10 MG TABLET PO PRN (11:19)
--- NOTE | 2021-03-15 11:37 | Operative Report ---
PG Post Operative Report Pre & Post Diagnosis Operation Date: 02/01/21 10:20 <No data on this case meets the specified criteria> Operation Date: 03/15/21 07:30 Pre-Op Diagnosis: Hydronephrosis Left Kidney Left Ureteropelvic junction obstruction Post-Op Diagnosis: Hydronephrosis Left Kidney Left Ureteropelvic junction obstruction I identified the patient and participated in the time-out.: Yes Procedure Operation Date: 02/01/21 10:20 <No data on this case meets the specified criteria> Operation Date: 03/15/21 07:30 Actual Procedures p Robotic Assisted Laparoscopic Left Dismembered Pyeloplasty(Left) - Harish Mendoza MD Surgeon Gerardo Mendoza MD Television Analyzer Abby Kamara Estimated Blood Loss 25 Findings Consistent with Post-Op Diagnosis Specimens 1. UPJ Description of Procedure Patient was identified in the preoperative holding area and appropriate informed consents reviewed and completed. She was transported to the operating suite where she received appropriate preoperative antibiotics in the form of Cipro. After receiving appropriate anesthesia she was placed in a [id number] left side up lateral decubitus position. Her imaging was pulled up on the monitors in the room and the bed was flexed. I began the case by passing a Veress needle into the left upper quadrant and insufflating the abdomen to 15 mmHg. I then marked and sequentially placed ports in a linear fashion just lateral to the border of the rectus. There were 4 ports placed in total. There was an additional 12 mm laboratory assistant port placed just below the umbilicus. After docking the robot I began by mobilizing the colon and and medializing it off of the kidney. This exposed a distended renal pelvis covered by a layer of fat and an inflammatory rind. Carefully dissected below the kidney and identified the gonadal vein. After dissecting lateral to the gonadal vein but medial to the ureter onto the psoas muscle, was able to elevate the lower portion of the kidney and continue to dissect the ureter towards the kidney. At the level of the UPJ, there was a notable artery crossing just behind the vessel. Interestingly I do not believe that this was kinking the ureter as it was posterior to it, however there was a significant inflammatory reaction in that area and appeared to be a significant change after freeing this artery from the backside of the ureter. There was a second vein just above that area and I was able to likewise dissect that off the posterior aspect of the UPJ. I then dissected the renal pelvis by gradually working my way through the inflammatory rind. After feeling that I had exposed sufficient tissue to allow dismembered pyeloplasty, I began to incise the renal pelvis and drained the excess of urine. A initial stitch was placed at this anterior, superior apex. I then entirely excised the remainder of the ureter and its junction. The ureter itself was then dissected approximately 1 cm to 2 cm below the true UPJ and I incised this half-way through beginning on the posterior side. I spatulated lateral ly/posteriorly utilizing Sanders scissors. And then used a retraction stitch of 3-0 Vicryl to help hold the ureter adjacent to the renal pelvis before beginning approximation of the ureter to the renal pelvis itself with a running 4-0 Vicryl sutures. I began each suture at the apex of the incisions and gradually work my way around both sides. After half-way closing the anastomosis I placed a 6 David nch by 24 cm double-J stent in antegrade fashion. The proximal curl was tucked into the renal pelvis and I completed the anastomosis over this acute stent. There was excellent hemostasis. A drain was guided into the left lateral paracolic gutter. All ports were removed. The midline laboratory assistant port was closed with a 0 Vicryl followed by 4-0 Monocryl and the robotic ports were closed with 4-0 Monocryl. Half percent Marcaine was utilized to infiltrate all skin incisions and muscle layers. The drain was sutured in place with 3-0 nylon. Dermabond was placed over the incisions and the case was concluded. The segment of excised UPJ was passed off the table for pathology. There were no complications, she tolerated the surgery well and was taken to the PACU in stable condition. Abby Kamara assisted from incision to closure. I attest to the content of the Intraoperative Record and any orders documented therein. Any exceptions are noted below.
[2021-03-15] MEDS: fentaNYL citrate 100 MCG/2 ML VIAL IV PRN ×3 (11:40→12:33)
[2021-03-15 11:41] LABS: Basophils # (auto) 0.01 K/uL (0-0.2); Basophils % (auto) 0.1 %; Eosinophils # (auto) 0.03 K/uL (0-0.5); Eosinophils % (auto) 0.4 %; Hematocrit (blood only) 36.7 % (37-47); Hemoglobin 11.9 g/dL (12.0-16.0); Immature Granulocytes # (auto) 0.03 K/uL (0.00-0.02); Immature Granulocytes % (auto) 0.4 %; Lymphocytes # (auto) 0.84 K/uL (1.2-3.4); Lymphocytes % (auto) 11.6 %; Mean Corpuscular Hemoglobin 28.9 pg (25-34); Mean Corpuscular Volume 89.1 fL (80-100); Mean Platelet Volume 8.7 fL (7.4-10.4); Monocytes # (auto) 0.15 K/uL (0.11-0.59); Monocytes % (auto) 2.1 %; Neutrophils # (auto) 6.19 K/uL (1.4-6.5); Neutrophils % (auto) 85.4 %; Platelet Count 152 K/uL (130-400); RDW Coefficient of Variation 13.6 % (11.5-14.5); RDW Standard Deviation 44.7 fL (36.4-46.3); Red Blood Count 4.12 M/uL (4.2-5.4); White Blood Count 7.25 K/uL (4.8-10.8)
[2021-03-15 11:56] LABS: Mean Corpuscular Hgb Conc 32.4 g/dL (32-36)
--- NOTE | 2021-03-15 11:57 | XRay Report ---
KUB CLINICAL HISTORY: Nephrolithiasis. Ureteral stent placement. FINDINGS: An AP, portable, supine abdominal radiograph is correlated with abdominal CT dated 1. There is a nonobstructed abdominal bowel gas pattern. Cholecystectomy clips are noted in the right upper quadrant. A left ureteral stent is in place. No calcifications are identified along the course of the stent. Additional catheters project over the left midabdomen. No calculi are clearly identifi ed in either kidney. Phleboliths are seen in the pelvis. The bony structures appear intact. IMPRESSION: 1. A left ureteral stent is in place. 2. No calcifications are clearly identified projecting over either kidney or along the course of the ureters/stent. Electronically signed by: Lauro Gonzalez M.D. 03/15/2021 11:56 AM
[2021-03-15 12:02] LABS: BUN Creatinine Ratio 17.8 (10-20); Calcium 8.6 mg/dl (8.5-10.1); Creatinine Clr Calc Pharmacy 71.5 ml/min; Est GFR (African American) 74.4 ml/min; Est GFR (Non-African American) 64.2 ml/min; Potassium 3.8 mmol/L (3.5-5.1)
--- NOTE | 2021-03-15 12:16 | Anesthesiology Progress Note ---
Date of Service March 15, 2021 Anesthesia Post Procedure Vital Signs Vital Signs: Temp Pulse Pulse Resp BP BP Pulse Ox 03/15/21 12:05 83 18 122/63 97 03/15/21 11:55 57 L 12 128/62 95 03/15/21 11:45 59 L 18 129/64 94 03/15/21 11:35 78 18 130/67 97 03/15/21 11:25 63 18 136/70 96 03/15/21 11:16 36.2 C L 64 21 123/57 L 97 03/15/21 06:09 36.7 C 77 18 179/84 H 97 Pain Intensity Left Abdomen: Pain Intensity: 4 Transfer of Care Handoff Completed per policy Notes Mental Status: alert / awake / arousable Patient Amnestic to Procedure: Yes Nausea / Vomiting: adequately controlled Pain: adequately controlled Airway Patency, RR, SpO2: stable & adequate BP & HR: stable & adequate Hydration State: stable & adequate Anesthetic Complications: no major complications apparent
[2021-03-15] MEDS ORDERED: MoRPHine SULFATE 2 MG/ML CARP IV PRN ×2 (13:04)
[2021-03-15] MEDS ORDERED: ALBUTEROL HFA 8 GM INHALER INH PRN (13:04)
[2021-03-15] MEDS ORDERED: oxyCODONE HCL IR 5 MG TAB (IMMEDIATE RELEASE) PO PRN ×2 (13:04)
[2021-03-15] MEDS: LACTATED RINGER'S 1,000 ML IV SCH (13:53)
[2021-03-15] MEDS: ACETAMINOPHEN 325 MG TAB PO PRN (17:09)
[2021-03-15] MEDS: HEPARIN SOD 5,000 UNIT/0.5 ML VIAL SQ SCH (20:31)
[2021-03-15] MEDS: CIPROFLOXACIN / D5W 400 MG/200 ML BAG IV SCH (20:31)
[2021-03-16] MEDS: LACTATED RINGER'S 1,000 ML IV SCH ×2 (01:55→10:34)
[2021-03-16] MEDS: ACETAMINOPHEN 325 MG TAB PO PRN (06:01)
[2021-03-16 06:34] LABS: Basophils # (auto) 0.01 K/uL (0-0.2); Basophils % (auto) 0.2 %; Eosinophils # (auto) 0.03 K/uL (0-0.5); Eosinophils % (auto) 0.5 %; Hematocrit (blood only) 34.4 % (37-47); Hemoglobin 11.1 g/dL (12.0-16.0); Immature Granulocytes # (auto) 0.01 K/uL (0.00-0.02); Immature Granulocytes % (auto) 0.2 %; Lymphocytes # (auto) 1.07 K/uL (1.2-3.4); Lymphocytes % (auto) 16.7 %; Mean Corpuscular Hgb Conc 32.3 g/dL (32-36); Mean Corpuscular Volume 89.8 fL (80-100); Monocytes % (auto) 12.5 %; Neutrophils % (auto) 69.9 %; Platelet Count 146 K/uL (130-400); RDW Coefficient of Variation 13.8 % (11.5-14.5); RDW Standard Deviation 45.6 fL (36.4-46.3); Red Blood Count 3.83 M/uL (4.2-5.4); White Blood Count 6.42 K/uL (4.8-10.8)
[2021-03-16 07:11] LABS: BUN Creatinine Ratio 17.5 (10-20); Calcium 8.8 mg/dl (8.5-10.1); Est GFR (African American) 94.4 ml/min; Est GFR (Non-African American) 81.5 ml/min; Potassium 3.9 mmol/L (3.5-5.1)
--- NOTE | 2021-03-16 08:33 | Urology Progress Note ---
Date of Service March 16, 2021 Assessment & Plan (1) Hydronephrosis of left kidney: Plan: Postop day #1 status post robotic pyeloplasty Parmar removal now Advance diet Ambulate Presuming no substantial increase in KORTNEY output, plan for KORTNEY removal and discharge home later this morning Admission and Anticipated Discharge Date Admission Date: March 15, 2021 Subjective Doing relatively well this morning Urine is clear Serosanguineous KORTNEY output Tolerating a diet Some discomfort but she was ambulatory Physical Exam Physical Exam: Incisions appropriate Urine clear KORTNEY serosanguineousmore serous Results & Data ([facility]) Vital Signs (Past 12 Hours) Vital Signs Temp Pulse Resp BP Pulse Ox 03/16/21 07:00 36.5 C 75 17 130/67 93 PG Care Time/CCT Total # of Minutes Spent Total Time Spent with Patient: Total time spent is greater than 50% in coordination of care (as documented) at patient's floor/unit and/or counseling patient: Coding Level of Care Code 98182 Subseq Hosp Care Lvl 2 Diagnoses Hydronephrosis of left kidney N13.30
[2021-03-16] MEDS ORDERED: PANTOprazole 40 MG TAB PO SCH (09:00)
[2021-03-16] MEDS: CIPROFLOXACIN / D5W 400 MG/200 ML BAG IV SCH (09:14)
[2021-03-16] MEDS: HEPARIN SOD 5,000 UNIT/0.5 ML VIAL SQ SCH (09:17)
--- NOTE | 2021-03-16 13:01 | Discharge Summary ---
Date of Service March 16, 2021 Admission HPI Per Admitting Provider 61y/o female w/ L hydro secondary to a UPJ obstruction with severe, intermittent left flank pain consistent with renal colic Admission Exam Per Admitting Provider Constitutional: well developed and well nourished Neck: neck nontender Respiratory: normal respiratory effort; no respiratory distress and does not use accessory muscles Cardiovascular: Rate/Rhythm: regular rate Vessels: radial pulses present Extremities: no edema Gastrointestinal (Abdomen): Inspection/Auscultation: abdomen normal to inspection Percussion/Palpation: abdomen soft; abdomen nontender and no guardi ng Musculoskeletal: Head/Neck/Chest: normocephalic and head atraumatic Extremities: extremities normal to inspection Skin: no rashes and no lesions Trauma: no evidence of skin trauma Neurologic: awake; not obtunded Speech / Cognition: normal speech Motor/Sensory: no tremor Psychiatric: Orientation: alert and oriented x 3 Lymphatic: no lymphadenopathy Principal Diagnosis Hydronephrosis Left Kidney Left Ureteropelvic junction obstruction Discharge Exam Physical Exam: Incisions appropriate Urine clear KORTNEY serosanguineousmore serous Discharge Data Allergies Allergy/AdvReac Type Severity Reaction Status Date / Time Penicillins Allergy Severe Tongue Verified 03/15/21 05:56 swelling, hives Sulfa (Sulfonamide Allergy Severe Tongue Verified 03/15/21 05:56 Antibiotics) swelling, hives amoxicillin Allergy Unknown Tongue Verified 03/15/21 05:56 swelling, blistering Procedures Performed Operation Date: 02/01/21 10:20 <No data on this case meets the specified criteria> Operation Date: 03/15/21 07:30 Actual Procedures p Robotic Assisted Laparoscopic Left Dismembered Pyeloplasty(Left) - Harish Mendoza MD Hospital Course (1) Hydronephrosis of left kidney: Postop day #1 status post robotic pyeloplasty Parmar removal now Advance diet Ambulate Presuming no substantial increase in KORTNEY output, plan for KORTNEY removal and discharge home later this morning Pt reassessed, feeling well and progressing as expected. Tolerating diet, no nausea or vomiting. Voiding spontaneously without difficulty after catheter removal earlier this morning. KORTNEY with minimal output, will d/c now. Expected clinical course reviewed with patient, she verbalizes understanding. All questions answered. Postoperative follow-up appointment in place. Stable for discharge home today. Total Time Total Time Spent Total Time Spent (In Minutes): 25 Discharge Plan Discharge Items Patient Disposition: Home - Self-Care Reason For Visit: Hydronephrosis Left Kidney, Left UPJ obstruction Discharge Diagnosis: Hydronephrosis Left Kidney Left Ureteropelvic junction obstruction Activity: Per Instructions section Lifting: No more than 25 pounds Bathing: No limitations Bathing Comment: OK to shower. No tub baths or soaks. Sexual Activity: Wait until after follow-up appointment Exercise/Sports: Wait until after follow-up appointment Driving/Machine Use: Do not drive while taking prescription pain medication. Non-emergency contact: Surgeon and Urologist Call non-emergency contact if: you have any medication questions, your pain is worsening, you have a fever, your temperature is above 101, your wound has increased redness, your wound has increased drainage and your wound pain has increased Follow-up/Referrals: Greg Kamara MD [Primary Care Provider] - Harish Mendoza MD [Physician] - 03/30/21 9:50 am Diet: Regular Addtl Attending Provider Instructions: Please take all medications as prescribed and keep all follow-ups as scheduled. Please call our office at [phone] with any questions, concerns or need to reschedule appointments for any reason. We are happy to assist you. Recovering at home: We recommend having someone with you for the first few days after surgery to help care for you. It is okay to shower. Please avoid swimming, bathing or using hot tub until incisions are well healed. Avoid driving until you are not requiring pain medication any further. Walk at least a few times a day. Increase your distance, as you feel able. Stairs in your home are okay. Please avoid strenuous or sexual activity until your follow-up. We recommend using stool softener (i.e. Colace) to prevent constipation and straining, especially the first two weeks post operatively. Call [facility] at [phone] if you experience: Chest pain or trouble breathing (call [phone] or go to the hospital). Fever of 101F or higher Symptoms of infection at incision site, including redness or swelling, warmth, or bad-smelling drainage Pain that is not controlled with medicines Pending Studies at Discharge: Yes (Pathology) Stand-Alone Forms: [employer], Smoking Cessation Medications and DC Order Prescriptions: New oxycodone-acetaminophen [Percocet] 5-325 mg tablet 1 tab PO Q8H PRN (Reason: pain) Qty: 10 RF: 0 docusate sodium [Colace] 100 mg capsule 100 mg PO BID Qty: 30 RF: 0 Continued meloxicam 7.5 mg tablet 7.5 mg PO QAM RF: 0 aspirin [Adult Aspirin Regimen] 81 mg tablet,delayed release (DR/EC) 81 mg PO QAM RF: 0 pantoprazole 40 mg tablet,delayed release (DR/EC) 40 mg PO QAM RF: 0 albuterol sulfate 90 mcg/actuation Hfa Aerosol Inhaler 1 inh INHALATION QID PRN (Reason: Wheezing) RF: 0 Discharge Orders: Discharge Order (Routine); Ordered 03/16/21 Ordered By: Laly Marie/Other Patient Handouts: DVT Post Op Prevention Admission Data Admit Date/Time: 03/15/21 11:13 Attending Provider: Harish Mendoza Admit Provider: Harish Mendoza Primary Care Provider: Greg Kamara Other Interventions: Discharge Summary Assessment (RN) Last Done: 03/16/21 11:50 Coding Level of Care Code D/C DAY MANAGEMENT <30 MINS Diagnoses Hydronephrosis of left kidney N13.30
== END 2021-03-16 12:51 | disposition home or self-care (01) | DRG 661 ==
LOC: ASU 05:41 → PACUINP 11:13 → ASUINP 03-16 06:52
DX: Z88.2 Allergy status to sulfonamides; Z88.1 Allergy status to other antibiotic agents; K21.9 Gastro-esophageal reflux disease without esophagitis; Z87.442 Personal history of urinary calculi; Z79.82 Long term (current) use of aspirin; N13.0 Hydronephrosis with ureteropelvic junction obstruction; E03.9 Hypothyroidism, unspecified; Z88.0 Allergy status to penicillin

== ENCOUNTER 2024-05-25 14:51 | Observation (INO) ==
--- NOTE | 2024-05-25 15:26 | XRay Report ---
INDICATION: Chest pain. TECHNIQUE: Frontal radiograph of the chest. COMPARISON: Radiograph from 01/11/2021. FINDINGS: Cardiomegaly. Mild pulmonary vascular congestion. No infiltrate, pleural effusion or pneumothorax. No acute osseous abnormality evident. IMPRESSION: Mild pulmonary vascular congestion. Electronically signed by Nicko Ivesron 05-25-2024 3:26 PM
[2024-05-25 16:05] LABS: Basophils # (auto) 0.02 K/uL (0.00-0.20); Basophils % (auto) 0.2 %; Eosinophils # (auto) 0.08 K/uL (0.00-0.50); Hematocrit (blood only) 36.9 % (37.0-47.0); Hemoglobin 12.2 g/dl (12.0-16.0); Immature Granulocytes # (auto) 0.04 K/uL (0.01-0.20); Immature Granulocytes % (auto) 0.5 %; Lymphocytes # (auto) 0.71 K/uL (1.20-3.40); Lymphocytes % (auto) 8.8 %; Mean Corpuscular Hemoglobin 28.8 pg (25.0-34.0); Mean Corpuscular Hgb Conc 33.1 g/dL (32.0-36.0); Mean Corpuscular Volume 87.2 fL (80.0-100.0); Mean Platelet Volume 9.2 fL (9.4-12.4); Monocytes # (auto) 0.79 K/uL (0.11-0.59); Monocytes % (auto) 9.8 %; Neutrophils # (auto) 6.43 K/uL (1.40-6.50); Neutrophils % (auto) 79.7 %; Platelet Count 177 K/uL (130-400); RDW Coefficient of Variation 12.8 % (11.5-14.5); RDW Standard Deviation 40.3 fL (36.4-46.3); Red Blood Count 4.23 M/uL (4.20-5.40); White Blood Count 8.07 K/ul (4.8-10.8)
--- NOTE | 2024-05-25 16:09 | Emergency Department Note ---
Impression & Plan Seizure, Chest pain, Syncope ED Provider Note NAME: VLAD WONG AGE: 64 SEX: F : 1960 ARRIVES VIA: Ambulance INFORMANT: Patient, ED PROVIDER(S): Kristin Tran MD CHIEF COMPLAINT: Cardiogenic syncope HPI: This is a 64-year-old female presenting for possible cardiac syncope versus seizure. Patient was at outside hospital emergency department where patient was at a department store. She felt her heart racing and then thought she is going to pass out. She was lowered to the chair and was witnessed to have shaking episodes. She might have bitten her tongue. She was seen at this outside ED where she had CT imaging that was all negative. Stroke neurologist thought patient will require MRI ultimately for further rule out. However EKG was then reviewed showing ST depressions in the lateral leads concerning for NSTEMI. Patient was then transferred here as the facility has no ability to get blood work as her machine was down. ROS: See above HPI for pertinent positives & negatives. A total of 10 systems reviewed and were otherwise negative. PAST MEDICAL HISTORY: See Below PAST SURGICAL HISTORY: See Below FAMILY HISTORY: See Below SOCIAL HISTORY: See Below HOME MEDICATIONS: See Below ALLERGIES: See Below VITALS: See Below PHYSICAL EXAMINATION: General: resting comfortably in no acute distress Head: Normocephalic and atraumatic Eyes: Normal inspection, extraocular muscles intact Ear, nose, throat: Normal external exam Neck: Normal range of motion Respiratory: lungs clear to auscultation bilaterally Cardiovascular: Regular rate/rhythm, no murmur GI: soft, nontender, no guarding or rebound Extremities: nontender, moves all extremities Neuro: The patient awake and alert, appropriately conversive, no focal deficits, symmetric faces Skin: Warm, dry, and intact MEDICAL DECISION MAKING: This is a 64-year-old female sent for seizure versus cardiogenic syncope. -Will do basic blood work. -outside ECG independently interpreted by me with sinus tachycardia, rate of 118, normal MI, normal QRS, normal QTc, no ST segment elevations consistent with STEMI criteria, ST depressions in lead V5, V6, 1, aVL -ECG independently interpreted by me with normal sinus rhythm, rate of 92, normal axis, normal MI, normal QRS, normal QTc, no ST segment elevations consistent with STEMI criteria -Bloodwork is reviewed showing no significant leukocytosis, anemia, electrolyte or creatinine abnormality. Negative troponin -Discussed with Dr. Mason for admission. Discussed need for further cardiac rule out as well as completion of stroke workup as per telestroke at [facility] (who spoke with ED doc at [facility]SH) Differential diagnosis: Cardiac syncope, seizure, stroke, PE, ACS Diagnostics interpreted by me: ECG: See above Cardiac Monitoring: An order was placed for continuous cardiac monitoring. The monitor shows a rate of 87 with sinus rhythm. Past Med/Surg History Problem List (Updated 05/25/24 @ 17:11 by Kristin Tran MD) Syncope (Acute) Chest pain (Acute) Seizure (Acute) Leukopenia Dyslipidemia Abnormal stress test Lumbar spondylolysis Left shoulder pain Umbilical hernia Type 2 diabetes mellitus Hypertension Ureteral stricture Heel spur Cervicalgia Shoulder pain, bilateral Coronary artery calcification Arthritis, multiple joint involvement H/O pyloroplasty Left hip pain Lumbar radicular pain Right shoulder tendinitis Chronic abdominal pain Vaginal prolapse Prolapse of bladder Cystocoele Elevated antinuclear antibody (GORGE) level Coccydynia Back pain Bilateral hand pain Elevated sed rate Hip pain, left Left lower quadrant abdominal pain Splenomegaly Rib cage dysfunction Submandibular gland tenderness Kidney stone Hx Medical History Leukopenia Eczema Gross hematuria Bronchitis Splenomegaly Hx of hydronephrosis Dyslipidemia Hx of chest pain Type 2 diabetes mellitus Hypertension History of bronchitis Chronic back pain Abdominal pain Constipation Rectal prolapse Arthritis Depression Thyroid nodule Hypothyroidism GERD (gastroesophageal reflux disease) Surgical History S/P foot surgery, right History of pyeloplasty (2020) S/P bladder repair History of cataract surgery History of colonoscopy History of surgery History of cystoscopy History of cholecystectomy H/O tubal ligation Family History Sister Family history of reaction to anesthesia Denies family history of Ovarian cancer Prostate cancer Breast cancer Lung cancer Colorectal cancer Social History Smoking Status: Never smoker 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); Do You Dip or Chew Tobacco: No; Hx Alcohol Use: No Hx Substance Use: No Preferred Language: Andorran Communication Ability: Effective Visual Impairment: No Limitations Hearing Ability: Normal Plant Machinist Required: No Beliefs That Will Affect Care: None marital status: Current Living Situation: Alone current occupational status: employed current occupation: high school science teacher How many Children do You have: 2 Feels Safe at Home: Yes Childhood Exposure to Second-Hand Smoke: No Diet: regular caffeine: No during the past year weight has: remained stable Dental Care, Regularly: Yes Physical Activity Frequency: Daily Physical Activity Frequency Comment: housework; yard work; babysits Seatbelt Use: always Sunscreen Use: Yes Assistive Devices: Denture - Upper Allergies Allergies Allergy/AdvReac Type Severity Reaction Status Date / Time Penicillins Allergy Severe Tongue Verified 05/06/24 14:49 swelling, hives Sulfa (Sulfonamide Allergy Severe Tongue Verified 05/06/24 14:49 Antibiotics) swelling, hives amoxicillin Allergy Unknown Tongue Verified 05/06/24 14:49 swelling, blistering metformin AdvReac Intermediate GI distress Verified 05/06/24 14:49 rosuvastatin AdvReac Intermediate Muscle Pain Verified 05/06/24 14:49 Sulfate Allergy Severe Tongue Uncoded 05/06/24 14:49 swelling, hives Home Meds Home Medications Medication Instructions Recorded Confirmed docusate sodium 100 mg capsule 100 mg PO DAILY PRN Constipation 12/27/23 05/25/24 (Stool Softener) ibuprofen 600 mg tablet 600 mg PO BID PRN Pain 12/27/23 05/25/24 multivitamin-ferrous 1 tab PO DAILY 03/03/24 05/25/24 fumarate-folic acid 18 mg-400 mcg tablet (Centrum Women) cholecalciferol (vitamin D3) 50 50 mcg PO DAILY 04/25/24 05/25/24 mcg (2,000 unit) tablet (Vitamin D3) conjugated estrogens 0.625 mg/gram 0.625 mg vaginal UD 04/25/24 05/25/24 vaginal cream (Premarin) Previous Rx's Medication Instructions Recorded pantoprazole 40 mg tablet,delayed 40 mg PO QAM #90 tabs 04/11/24 release tirzepatide 5 mg/0.5 mL 5 mg (0.5 mL) subcut .weekly 4 05/19/24 subcutaneous pen injector weeks #2 mL Results & Data (ED) Vital Signs Vital Signs - 24 hr 05/25/24 15:05 05/25/24 15:10 05/25/24 15:28 Temperature 36.6 C Temperature Source Oral Pulse Rate 91 H Pulse Rate [Left Finger] 87 Respiratory Rate 19 20 Respiratory Effort / Characteristics Non-Labored Spontaneous Respiratory Depth Normal Respiratory Pattern Regular Blood Pressure 181/91 H Blood Pressure [Left Arm] 181/91 H Blood Pressure Mean 121 Blood Pressure Mean [Left Arm] 121 Pulse Oximetry 99 97 96 Oxygen Delivery Method Room Air Room Air Sepsis Recent Fever Within 48 Hours No Sepsis New/Unexplained Change in Mental Status N/A Sepsis Action Taken by Nursing No Action Required Laboratory Data 05/25/24 15:03 05/25/24 15:03 Lab Results 05/25/24 Range/Units 15:03 WBC 8.07 (4.8-10.8) K/ul RBC 4.23 (4.20-5.40) M/uL Hgb 12.2 (12.0-16.0) g/dl Hct 36.9 L (37.0-47.0) % MCV 87.2 (80.0-100.0) fL MCH 28.8 (25.0-34.0) pg MCHC 33.1 (32.0-36.0) g/dL RDW Std Deviation 40.3 (36.4-46.3) fL RDW Coeff of Christiano 12.8 (11.5-14.5) % Plt Count 177 (130-400) K/uL MPV 9.2 L (9.4-12.4) fL Immature Gran % (Auto) 0.5 % Neut % (Auto) 79.7 % Lymph % (Auto) 8.8 % Greer % (Auto) 9.8 % Eos % (Auto) 1.0 % Baso % (Auto) 0.2 % Neut # (Auto) 6.43 (1.40-6.50) K/uL Lymph # (Auto) 0.71 L (1.20-3.40) K/uL Greer # (Auto) 0.79 H (0.11-0.59) K/uL Eos # (Auto) 0.08 (0.00-0.50) K/uL Baso # (Auto) 0.02 (0.00-0.20) K/uL Immature Gran # (Auto) 0.04 (0.01-0.20) K/uL Sodium 141 (136-145) mmol/L Potassium 3.1 L (3.5-5.1) mmol/L Chloride 108 H (98-107) mmol/L Carbon Dioxide 24 (21-32) mmol/L Anion Gap 9 (3-11) BUN 13 (6-23) mg/dl Creatinine 0.88 (0.6-1.2) mg/dl Est Cr Clr Drug Dosing 72.9 ml/min eGFR 72.89 BUN/Creatinine Ratio 14.8 (10-20) Glucose 93 (70-99(Fasting)) mg/dl Calcium 8.9 (8.6-10.3) mg/dl Total Bilirubin 0.5 (0.2-1.0) mg/dl AST 31 (13-39) U/L ALT 31 (7-52) U/L Alkaline Phosphatase 62 (34-104) U/L Troponin I High Sens 11.0 (0-14) pg/ml Total Protein 7.4 (6.0-8.3) gm/dl Albumin 4.0 (3.4-5.0) gm/dl Globulin 3.4 (2.5-4.0) gm/dl Albumin/Globulin Ratio 1.2 (0.9-2) Lipase 48 (11-82) U/L Administered Medications Discontinued Medications Potassium Chloride (Potassium Chloride Crtab 20 Meq Tabcr) 40 meq PO NOW STA Stop: 05/25/24 16:18 Last Admin: 05/25/24 16:39 Dose: 40 meq Documented By: TIA Imaging Data Radiologist's Impression: Chest X-Ray 05/25/24 15:09 INDICATION: Chest pain. TECHNIQUE: Frontal radiograph of the chest. COMPARISON: Radiograph from 01/11/2021. FINDINGS: Cardiomegaly. Mild pulmonary vascular congestion. No infiltrate, pleural effusion or pneumothorax. No acute osseous abnormality evident. IMPRESSION: Mild pulmonary vascular congestion. Electronically signed by Nicko Iverson 05-25-2024 3:26 PM Discharge Plan Visit Data Chief Complaint: Cardiac Assessment Stated Complaint: transfer-stemi ED Provider: Kristin Tran Discharge Problem: Seizure, Chest pain, Syncope Forms Stand Alone Forms: [facility] Prescriptions Prescriptions: No Action pantoprazole 40 mg tablet,delayed release (DR/EC) 40 mg PO QAM Qty: 90 3RF Mounjaro 5 mg/0.5 mL pen injector 5 mg subcut .weekly 28 Days Qty: 2 2RF Rx Instructions: Sunday Centrum Women 18-400 mg-mcg tablet 1 tab PO DAILY ibuprofen 600 mg tablet 600 mg PO BID PRN (Reason: Pain) docusate sodium [Stool Softener] 100 mg Capsule 100 mg PO DAILY PRN (Reason: Constipation) Premarin 0.625 mg/gram Cream 0.625 mg VAGINAL UD Rx Instructions: TWICE PER WEEK cholecalciferol (vitamin D3) [Vitamin D3] 50 mcg (2,000 unit) Tablet 50 mcg PO DAILY Referrals Referrals: Apollo Clayton CRNP [Primary Care Provider] -
[2024-05-25 16:12] LABS: Albumin Globulin Ratio 1.2 (0.9-2); BUN Creatinine Ratio 14.8 (10-20); Bilirubin,Total 0.5 mg/dl (0.2-1.0); Calcium 8.9 mg/dl (8.6-10.3); Creatinine Clr Calc Pharmacy 72.9 ml/min; Globulin 3.4 gm/dl (2.5-4.0); Potassium 3.1 mmol/L (3.5-5.1); Total Protein 7.4 gm/dl (6.0-8.3)
--- NOTE | 2024-05-25 16:35 | History & Physical Report ---
Date of Service May 25, 2024 Assessment & Plan (1) Syncope: Plan: Suspect mostly likely had a vasovagal syncope from exerting herself following period of rest following influenza diagnosis, however EKG finding and seizure activity concerning ST depressions on EKG from [facility] in I, II, aVL, V5 and V6 Also noted prior abnormal stress test with EKG changes in June 2023 TTE Telemetry Consult cardiology (2) Seizure-like activity: Plan: Stroke workup recommended by telestroke when at [facility] although no stroke like symptoms from history. However, will get MRI brain regardless given seizure activity although most likely this is syncopal seizure caused by her staying in the chair rather than in Trendelenburg position (3) Type 2 diabetes mellitus: Plan: Hemoglobin A1c 6.1 in February, repeat with a.m. labs but no need for BSG ACHS (4) Abnormal stress test: Plan: Noted in June 2023 Plan VTE Prophylaxis - low risk Diet - heart healthy, T2DM Disposition - admit to PCU Admission and Anticipated Discharge Date Admission Date: May 25, 2024 History of Present Illness Chief Complaint: Syncope Primary Care Provider: SARA Wilkins Lindsay Licona is a 64 year old female who presents as a transfer from [facility] emergency room due to a syncopal event. She was in [employer] today when she suddenly started feeling hot and presyncope. She also wants to get her chair and sat down and less lasting she remembers until waking up at [facility] emergency room. On discussion with her son over the phone while sitting down she became stiff and then started shaking all 4 limbs for around 3 to 5 minutes while he kept her in the chair. Her eyes appeared to go to the side and appeared to be foaming in the mouth. She has no history of seizures. In [facility] emergency room telestroke were contacted and recommended admission for stroke workup. She also had ST depressions in the lateral leads and due to no cardiology coverage and delay in getting lab tests as the lab was down she was accepted for ER transfer by Dr. Tran. She is currently chest pain-free and feels mostly back to her baseline at this time. This is on a background of being diagnosed with influenza on May 16. She has been resting with generalized fatigue and weakness. Respiratory symptoms have improved and she only started getting out of the house yesterday. She is also been having chest pains. This was also noted in previous cardiology notes although she cannot tell me whether this is the same feeling but she does note this is worse than usual. Initial chest pain started yesterday lasting for half an hour at approximately 10 AM with radiation down her elbow, unknown exertional, central, no change with food or inspiration. She had a similar episode last night with the same characteristic but less severe lasting for 15 to 20 minutes. No history of heart attack or strokes. Allergies Allergy/AdvReac Type Severity Reaction Status Date / Time Penicillins Allergy Severe Tongue Verified 05/06/24 14:49 swelling, hives Sulfa (Sulfonamide Allergy Severe Tongue Verified 05/06/24 14:49 Antibiotics) swelling, hives amoxicillin Allergy Unknown Tongue Verified 05/06/24 14:49 swelling, blistering metformin AdvReac Intermediate GI distress Verified 05/06/24 14:49 rosuvastatin AdvReac Intermediate Muscle Pain Verified 05/06/24 14:49 Sulfate Allergy Severe Tongue Uncoded 05/06/24 14:49 swelling, hives Home Medications Medication Instructions Recorded Confirmed Type docusate sodium 100 mg capsule 100 mg PO DAILY PRN Constipation 12/27/23 05/25/24 History (Stool Softener) ibuprofen 600 mg tablet 600 mg PO BID PRN Pain 12/27/23 05/25/24 History multivitamin-ferrous 1 tab PO DAILY 03/03/24 05/25/24 History fumarate-folic acid 18 mg-400 mcg tablet (Centrum Women) pantoprazole 40 mg tablet,delayed 40 mg PO QAM #90 tabs 04/11/24 05/25/24 Rx release cholecalciferol (vitamin D3) 50 50 mcg PO DAILY 04/25/24 05/25/24 History mcg (2,000 unit) tablet (Vitamin D3) conjugated estrogens 0.625 mg/gram 0.625 mg vaginal UD 04/25/24 05/25/24 History vaginal cream (Premarin) tirzepatide 5 mg/0.5 mL 5 mg (0.5 mL) subcut .weekly 4 05/19/24 05/25/24 Rx subcutaneous pen injector weeks #2 mL Past Med/Surg History Problem List (Updated 05/26/24 @ 00:30 by Gigi Mason MD) Seizure-like activity Syncope (Acute) Chest pain (Acute) Seizure (Acute) Leukopenia Dyslipidemia Abnormal stress test Lumbar spondylolysis Left shoulder pain Umbilical hernia Type 2 diabetes mellitus Hypertension Ureteral stricture Heel spur Cervicalgia Shoulder pain, bilateral Coronary artery calcification Arthritis, multiple joint involvement H/O pyloroplasty Left hip pain Lumbar radicular pain Right shoulder tendinitis Chronic abdominal pain Vaginal prolapse Prolapse of bladder Cystocoele Elevated antinuclear antibody (GORGE) level Coccydynia Back pain Bilateral hand pain Elevated sed rate Hip pain, left Left lower quadrant abdominal pain Splenomegaly Rib cage dysfunction Submandibular gland tenderness Kidney stone Hx Medical History Leukopenia Eczema Gross hematuria Bronchitis Splenomegaly Hx of hydronephrosis Dyslipidemia Hx of chest pain Type 2 diabetes mellitus Hypertension History of bronchitis Chronic back pain Abdominal pain Constipation Rectal prolapse Arthritis Depression Thyroid nodule Hypothyroidism GERD (gastroesophageal reflux disease) Surgical History S/P foot surgery, right History of pyeloplasty (2020) S/P bladder repair History of cataract surgery History of colonoscopy History of surgery History of cystoscopy History of cholecystectomy H/O tubal ligation Family History Sister Family history of reaction to anesthesia Denies family history of Ovarian cancer Prostate cancer Breast cancer Lung cancer Colorectal cancer Social History Smoking Status: Never smoker 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); Do You Dip or Chew Tobacco: No; Hx Alcohol Use: No Hx Substance Use: No Preferred Language: Citizen Of [place] Communication Ability: Effective Visual Impairment: No Limitations Hearing Ability: Normal News Department Intern Required: No Beliefs That Will Affect Care: None marital status: Current Living Situation: Alone current occupational status: employed current occupation: school operations manager How many Children do You have: 2 Feels Safe at Home: Yes Safety Concerns: Feels Safe At This Time Childhood Exposure to Second-Hand Smoke: No Diet: regular caffeine: No during the past year weight has: remained stable Dental Care, Regularly: Yes Physical Activity Frequency: Daily Physical Activity Frequency Comment: housework; yard work; babysits Seatbelt Use: always Sunscreen Use: Yes Assistive Devices: Glasses Review of Systems Review of Systems: All systems reviewed & are unremarkable except as noted in HPI & below Diarrhea on and off: No worse than usual Physical Exam Constitutional: WD/WN, vitals as above ENMT: external ear and nose normal, oropharynx normal Respiratory: normal respiratory effort, lungs clear to auscultation Cardiovascular: RRR, no murmur, no edema Gastrointestinal (Abdomen): normal bowel sounds, soft, nontender, no hepatosplenomegaly Musculoskeletal: no cyanosis or clubbing, extremities motor strength 5/5 Skin: no rashes, warm and dry Neurologic: moves all extremities and awake; not confused Psychiatric: A+Ox3, euthymic affect Results & Data Results & Data Vital Signs (Past 12 Hours) Vital Signs Temp Pulse Pulse Resp BP BP Pulse Ox 05/25/24 15:28 87 20 181/91 H 96 05/25/24 15:10 97 05/25/24 15:05 36.6 C 91 H 19 181/91 H 99 O2 Del Method 05/25/24 15:28 05/25/24 15:10 Room Air 05/25/24 15:05 Room Air Laboratory Results Abnormal lab results 05/25/24 Range/Units 15:03 Hct 36.9 L (37.0-47.0) % MPV 9.2 L (9.4-12.4) fL Lymph # (Auto) 0.71 L (1.20-3.40) K/uL Sevier # (Auto) 0.79 H (0.11-0.59) K/uL Potassium 3.1 L (3.5-5.1) mmol/L Chloride 108 H (98-107) mmol/L Diagnostic Findings CXR INDICATION: Chest pain. TECHNIQUE: Frontal radiograph of the chest. COMPARISON: Radiograph from 01/11/2021. FINDINGS: Cardiomegaly. Mild pulmonary vascular congestion. No infiltrate, pleural effusion or pneumothorax. No acute osseous abnormality evident. IMPRESSION: Mild pulmonary vascular congestion. Medications Administered ER medications given: Potassium chloride 40 mEq p.o. ECG Rate (beats per minute): 94 Rhythm: normal sinus Findings: + other (Left ventricular hypertrophy with repolarization abnormality) Comparison ECG Date: from (May 25, 2024) Change: the following changes noted (ST depression in lateral leads have resolved) Code Status & VTE Plan Code Status Full VTE Prophylaxis Plan VTE Prophylaxis will be ordered: No PG Care Time/CCT Total # of Minutes Spent Total Time Spent with Patient: Total time spent is greater than 50% in coordination of care (as documented) at patient's floor/unit and/or counseling patient: Coding Level of Care Code 96635 INT INP/OBS CARE 3/75MIN Diagnoses Syncope R55 Seizure-like activity R56.9 Type 2 diabetes mellitus E11.9 Abnormal stress test R94.39
[2024-05-25] MEDS: POTASSIUM CHLORIDE CRTAB 20 MEQ TABCR PO STA (16:39)
[2024-05-25 18:12] LABS: Appearance Urine Clear (Clear); Bilirubin Urine Negative (Negative); Blood Urine Negative (Negative); Color Urine Yellow; Glucose Urine UA Negative (Negative); Ketones Urine Negative (Negative); Leukocyte Esterase Urine Negative (Negative); Nitrite Urine Negative (Negative); Protein Urine Negative (Negative); Specific Gravity Urine 1.038 (1.000-1.030); Urobilinogen Urine Negative (Negative)
[2024-05-25] MEDS: LORazepam 2 MG/1 ML VIAL IV STA (18:35)
[2024-05-25] MEDS: GADOXETATE DISODIUM IV ONE (19:27)
[2024-05-25] MEDS ORDERED: DOCUSATE SODIUM 100 MG CAP PO PRN (20:43)
--- NOTE | 2024-05-25 21:08 | Electrocardiogram Report ---
Test Reason : Blood Pressure : */* mmHG Vent. Rate : 94 BPM Atrial Rate : 94 BPM P-R Int : 180 ms QRS Dur : 82 ms QT Int : 356 ms P-R-T Axes : 48 -11 74 degrees QTcB Int : 445 ms Normal sinus rhythm Left ventricular hypertrophy with repolarization abnormality ( R in aVL ) Abnormal ECG When compared with ECG of 09-Jan-2021 10:02, No significant change was found Confirmed by Orestes Alicia ([id number]) on 05/25/2024 9:07:51 PM Referred By: REFERRED SELF Confirmed By: Orestes Alicia
--- NOTE | 2024-05-25 22:19 | Magnetic Resonance Report ---
EXAM: MR brain seizure wo/w con CLINICAL HISTORY: Seizure-like activity TECHNIQUE: MRI of the brain was performed with and without intravenous contrast administration. Sequences obtained include pre-contrast and post-contrast T1-weighted, T2-weighted, FLAIR (Fluid-Attenuated Inversion Recovery), DWI (Diffusion-Weighted Imaging), and ADC (Apparent Diffusion Coefficient) sequences. COMPARISON: No previous studies are available for comparison. FINDINGS: Brain Parenchyma: No evidence of acute infarction or hemorrhage. A 5 x 4.5 mm T2/FLAIR hyperintense focus is seen in the deep white matter of the right basifrontal region, with no diffusion restriction or contrast enhancement, this could represent sequelae to prior ischemic insult. Few tiny FLAIR hyperintense foci are seen in the subcortical white matter of the bilateral cerebral hemisphere, likely representing minimal chronic microvascular ischemic changes. Post-Contrast Findings: No abnormal enhancement of the brain parenchyma or meninges. Ventricles and Sulci: The ventricular system is within normal limits without evidence of hydrocephalus. Sulci and cisternal spaces are age-appropriate. Brainstem and Cerebellum: Normal appearance of the brainstem and cerebellum without focal lesions or abnormal enhancement. Skull and Calvarium: No evidence of skull vault lesions or abnormal marrow signal within the calvarium. IMPRESSION: 1. No evidence of acute infarction or hemorrhage. 2. A 5 x 4.5 mm T2/FLAIR hyperintense focus in the deep white matter of right basifrontal region, with no diffusion restriction or contrast enhancement, could represent sequelae to prior ischemic insult. 3. Few tiny FLAIR hyperintense foci in the subcortical white matter of the bilateral cerebral hemisphere, likely representing minimal chronic microvascular ischemic changes. Electronically signed by Kelly De Souza 05-25-2024 10:18 PM
[2024-05-26 07:06] LABS: Basophils # (auto) 0.03 K/uL (0.00-0.20); Basophils % (auto) 0.7 %; Eosinophils # (auto) 0.16 K/uL (0.00-0.50); Eosinophils % (auto) 3.8 %; Hemoglobin 11.8 g/dl (12.0-16.0); Immature Granulocytes # (auto) 0.01 K/uL (0.01-0.20); Immature Granulocytes % (auto) 0.2 %; Lymphocytes # (auto) 0.88 K/uL (1.20-3.40); Lymphocytes % (auto) 20.7 %; Mean Corpuscular Hemoglobin 29.5 pg (25.0-34.0); Mean Corpuscular Hgb Conc 33.7 g/dL (32.0-36.0); Mean Corpuscular Volume 87.5 fL (80.0-100.0); Mean Platelet Volume 9.4 fL (9.4-12.4); Monocytes # (auto) 0.59 K/uL (0.11-0.59); Monocytes % (auto) 13.9 %; Neutrophils # (auto) 2.58 K/uL (1.40-6.50); Neutrophils % (auto) 60.7 %; Platelet Count 161 K/uL (130-400); RDW Coefficient of Variation 12.8 % (11.5-14.5); RDW Standard Deviation 41.4 fL (36.4-46.3); White Blood Count 4.25 K/ul (4.8-10.8)
[2024-05-26 07:37] LABS: Albumin Globulin Ratio 1.2 (0.9-2); Albumin Level 3.6 gm/dl (3.4-5.0); Bilirubin,Total 0.6 mg/dl (0.2-1.0); Creatinine Clr Calc Pharmacy 78.9 ml/min; Magnesium 1.9 mg/dl (1.7-2.4); Potassium 3.9 mmol/L (3.5-5.1); Total Protein 6.6 gm/dl (6.0-8.3)
[2024-05-26 07:41] LABS: Troponin I High Sensitivity 9.4 pg/ml (0-14)
[2024-05-26] MEDS: PANTOprazole 40 MG TAB PO SCH (09:04)
[2024-05-26] MEDS: ACETAMINOPHEN 325 MG TAB PO PRN (09:04)
--- NOTE | 2024-05-26 10:01 | Neurology Consultation ---
Date of Consultation May 26, 2024 Assessment & Plan (1) Seizure-like activity: History of Present Illness Attending Physician: Sandra Light MD History of Present Illness S: pt this morning feeling well. she does not remember the event and her son witnessed the event and noted for sudden stiffening body and foaming in mouth and eyes open. pt also confused after the event. left side tongue biting. no bowel/bladder loss. mri brain negative. she admits last 2 weeks or so, she was sick with flu and dehydrated with diarrhea and lack of sleep from constant coughing. she is now feeling better. no prior hx of seizure. pt is school physical therapist. admission HPI: Lindsay Licona is a 64 year old female who presents as a transfer from [facility] emergency room due to a syncopal event. She was in [employer] today when she suddenly started feeling hot and presyncope. She also wants to get her chair and sat down and less lasting she remembers until waking up at [facility] emergency room. On discussion with her son over the phone while sitting down she became stiff and then started shaking all 4 limbs for around 3 to 5 minutes while he kept her in the chair. Her eyes appeared to go to the side and appeared to be foaming in the mouth. She has no history of seizures. In [facility] emergency room telestroke were contacted and recommended admission for stroke workup. She also had ST depressions in the lateral leads and due to no cardiology coverage and delay in getting lab tests as the lab was down she was accepted for ER transfer by Dr. Tran. She is currently chest pain-free and feels mostly back to her baseline at this time. This is on a background of being diagnosed with influenza on May 16. She has been resting with generalized fatigue and weakness. Respiratory symptoms have improved and she only started getting out of the house yesterday. She is also been having chest pains. This was also noted in previous cardiology notes although she cannot tell me whether this is the same feeling but she does note this is worse than usual. Initial chest pain started yesterday lasting for half an hour at approximately 10 AM with radiation down her elbow, unknown exertional, central, no change with food or inspiration. She had a similar episode last night with the same characteristic but less severe lasting for 15 to 20 minutes. No history of heart attack or strokes. Allergies Allergy/AdvReac Type Severity Reaction Status Date / Time Penicillins Allergy Severe Tongue Verified 05/06/24 14:49 swelling, hives Sulfa (Sulfonamide Allergy Severe Tongue Verified 05/06/24 14:49 Antibiotics) swelling, hives amoxicillin Allergy Unknown Tongue Verified 05/06/24 14:49 swelling, blistering metformin AdvReac Intermediate GI distress Verified 05/06/24 14:49 rosuvastatin AdvReac Intermediate Muscle Pain Verified 05/06/24 14:49 Sulfate Allergy Severe Tongue Uncoded 05/06/24 14:49 swelling, hives Home Medications Medication Instructions Recorded Confirmed Type docusate sodium 100 mg capsule 100 mg PO DAILY PRN Constipation 12/27/23 05/25/24 History (Stool Softener) ibuprofen 600 mg tablet 600 mg PO BID PRN Pain 12/27/23 05/25/24 History multivitamin-ferrous 1 tab PO DAILY 03/03/24 05/25/24 History fumarate-folic acid 18 mg-400 mcg tablet (Centrum Women) pantoprazole 40 mg tablet,delayed 40 mg PO QAM #90 tabs 04/11/24 05/25/24 Rx release cholecalciferol (vitamin D3) 50 50 mcg PO DAILY 04/25/24 05/25/24 History mcg (2,000 unit) tablet (Vitamin D3) conjugated estrogens 0.625 mg/gram 0.625 mg vaginal UD 04/25/24 05/25/24 History vaginal cream (Premarin) tirzepatide 5 mg/0.5 mL 5 mg (0.5 mL) subcut .weekly 4 05/19/24 05/25/24 Rx subcutaneous pen injector weeks #2 mL Patient History Medical History Leukopenia Eczema Gross hematuria Bronchitis Splenomegaly Hx of hydronephrosis Dyslipidemia Hx of chest pain Type 2 diabetes mellitus Hypertension History of bronchitis Chronic back pain Abdominal pain Constipation Rectal prolapse Arthritis Depression Thyroid nodule Hypothyroidism GERD (gastroesophageal reflux disease) Surgical History S/P foot surgery, right History of pyeloplasty (2020) S/P bladder repair History of cataract surgery History of colonoscopy History of surgery History of cystoscopy History of cholecystectomy H/O tubal ligation Family History Sister Family history of reaction to anesthesia Denies family history of Ovarian cancer Prostate cancer Breast cancer Lung cancer Colorectal cancer Social History Smoking Status: Never smoker 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); Do You Dip or Chew Tobacco: No; Hx Alcohol Use: No Hx Substance Use: No Preferred Language: Bulgarian Communication Ability: Effective Visual Impairment: No Limitations Hearing Ability: Normal Queen Producer Required: No Beliefs That Will Affect Care: None marital status: Current Living Situation: Alone current occupational status: employed current occupation: school physical therapist How many Children do You have: 2 Feels Safe at Home: Yes Safety Concerns: Feels Safe At This Time Childhood Exposure to Second-Hand Smoke: No Diet: regular caffeine: No during the past year weight has: remained stable Dental Care, Regularly: Yes Physical Activity Frequency: Daily Physical Activity Frequency Comment: housework; yard work; babysits Seatbelt Use: always Sunscreen Use: Yes Assistive Devices: Glasses Exam (Neuro) Physical Exam: HEENT: normocephalic grossly Neuro: Mental: AOx4, fluent speech, normal comprehension, no apraxia, no L/R confusion, no neglect CN: PERRL, Full EOM, symmetric face, midline T/U/P, grossly full ROM neck Motor: No abnormal movements, normal tone, 5/5 t/o bilaterally Sens: intact to touch b/l grossly Coord: intact DTR: 2+ sym b/l Impression: 64 yo female with transient Loss of consciousness that is suggestive of seizure like event with hx of prior abnormal stress test and ECG. pt doing well now and mri brain and exam normal. Perhaps recent dehydration and sleep deprivation may contributed. Recommendations: routine outpt neurology referral is ok (no need for inpt EEG at this point). no driving 6 months (informed pt). no need for AED at this point. avoid dehydration and sleep deprivation. finish cardiac work up. please call again if new question. Chart reviewed I have spent more than 50% educating patient about potential diagnosis and neurological evaluation and coordinating care with patient's treatment team. Total time spent (including chart review and coordination of care): 60 min (this includes chart review). Results & Data Vital Signs (Past 12 Hours) Vital Signs Temp Pulse Pulse Resp BP Pulse Ox O2 Del Method 05/26/24 08:00 37.1 C 79 18 119/78 94 Room Air 05/26/24 03:29 36.9 C 70 18 125/74 95 Room Air 05/25/24 23:28 37.0 C 76 18 146/69 H 94 Room Air 05/25/24 22:08 77 PG Care Time/CCT Total # of Minutes Spent Total Time Spent with Patient: Total time spent is greater than 50% in coordination of care (as documented) at patient's floor/unit and/or counseling patient: Coding Level of Care Code 15513 IN/OBS CONSULT LVL 4,60M Diagnoses Seizure-like activity R56.9
--- NOTE | 2024-05-26 15:07 | XCELERA ---
[id number]
--- NOTE | 2024-05-26 19:01 | Hospitalist Progress Note ---
Date of Service May 26, 2024 Assessment & Plan (1) Seizure: Plan: Lindsay Licona is a 64-year-old with diabetes who was just getting over an episode of influenza A which have been treated with Tamiflu who presented with a seizure while with her son and family at [employer]. He describes that she had a prodrome where she felt lightheaded or dizzy, he helped her into a chair and she began to have jerking tonic-clonic movements of all extremities for 3-5 minutes lost consciousness, she did bite her tongue, she had a postictal period and was confused I did not become alert until she was already in the [facility] ED. she was then transferred to the [facility] ED because of lack of appropriate testing/evaluation capability at [facility] she has had no further episodes she has no his seizure history and no history of head trauma. Telestroke in ED recommended brain MRI which did not show any acute infarct, there is probably an old lacune. I consulted neurology, she was evaluated this morning by Dr. Garcia. He feels she had seizure probably brought on by lowered seizure threshold from multiple factors, recommended no driving for 6 months and follow-up in outpatient neurology, he did not recommend AED at this time and thought outpatient EEG was okay. I think she did have several factors which may have lowered her seizure threshold including dehydration, recent influenza and eating poorly, recent increase in Mounjaro which can suppress oral intake and resultant volume depletion, she may have been relatively hypoglycemic and I do not know if the medics gave her dextrose or checked her blood sugar, in addition she had been taking a decongestant at least through Sunday and Sunday which was [id number] and may have been phenylephrine or pseudoephedrine. (2) Chest pain: Plan: she was evaluated for chest pain in spring 2023 by [facility], she had a normal stress echo at that time, she did have some ST depression on the EKG tracing. she had 2 episodes of chest pain this weekend 1 on Sunday and 1 on Sunday, they felt different from her previous chest pains, the recent pains were exertional and that she was moving around the house doing light activity, they were substernal and radiating to left upper arm, each 1 lasted 10-30 minutes and resolved once she sat down and rested and she took a baby aspirin there was concern for acute coronary event in the [facility] ED because of the appearance of either her EKG or monitor tracings. EKG done on admission here shows LVH with strain pattern and unchanged from previous. Her high- sensitivity troponins are basically negative with an extremely minimal elevation that is probably related to the seizure and downtrended TTE done 05/26 shows normal LV, EF 65-70% with no RWMA's, no LVH no significant valvular abnormalities normal RVSP and no change since a year ago cardiology was consulted by the admitting team, seems that she might need further evaluation for possible angina, not necessarily during this hospitalization since echo and EKGs are reassuring no recurrence of pain and low high-sensitivity troponins (3) Type 2 diabetes mellitus: Plan: Hemoglobin A1c 6.1 in February, repeat with a.m. labs but no need for BSG ACHS recently changed from Ozempic to Mounjaro, Mounjaro dose was increased to 5 mg a week ago (4) Hydronephrosis: Plan: this is chronic and followed by urologyshe has been seeing Dr. Mendoza but recently was referred to Dr. Barlow she does have some left flank and left lower quadrant tenderness I do not think this is acute, urinalysis done yesterday was negative for pyuria I reviewed her last outpatient urology note from 09/17/2023 it states she is status post left robotic pyeloplasty 2020, at September 2023 visit it was stated that left kidney appeared to be functioning normally/draining appropriately on a CT scan, the note is she had prior MAG3 scanning as well which was appropriate. 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 I think it would be prudent to continue to observe her but she should be okay to discharge home tomorrow morning if no further events, with neurology and cardiology follow-up Admission and Anticipated Discharge Date Admission Date: May 25, 2024 Subjective Lindsay is feeling much better today, she does not have any residual flu symptoms of nasal congestion or cough, she has left thigh and hip flexor soreness, she has some soreness of right shoulder/upper arm area which is mild her son is in the room who was able to describe the seizure episode he witnessed she has ongoing left flank and left abdominal/left lower quadrant tenderness related to her ongoing issue with hydronephrosis for which she follows with urology Physical Exam 2 Physical Exam: PHYSICAL EXAMINATION Last 24h vital signs reviewed, see documentation in flowsheet General: comfortable appearing, no distress HEENT: Normocephalic, atraumatic, pupils round and equal, sclerae anicteric, no conjunctival injection, moist mucus membranes Lungs: Normal respiratory effort. Clear to auscultation bilaterally. No RRW Heart: Regular rate and rhythm, no murmurs. No JVD Abdomen: Soft, nontender, nondistended. Bowel sounds present. Extremities: Warm, dry, well-perfused. No extremity edema. Neuro: Alert and oriented x 4, face symmetric, moves 4 extremities well - strength exam is normal except for giveaway weakness with left hip flexor which is related to pain, distal left lower extremity strength is 5/5 and when I had her flex her knee her hip flexor strength was 5/5 Psych: Normal affect and behavior Results & Data Results & Data Vital Signs (Past 12 Hours) Vital Signs Temp Pulse Pulse Resp BP Pulse Ox O2 Del Method 05/26/24 15:55 98.6 F 66 18 148/77 H 95 Room Air 05/26/24 12:56 72 05/26/24 11:43 98.4 F 67 17 95/50 L 97 Room Air 05/26/24 08:00 98.8 F 79 18 119/78 94 Room Air Laboratory Results 05/26/24 05:50 05/26/24 05:50 PG Care Time/CCT Total # of Minutes Spent Total Time Spent with Patient: I personally spent: 55 minutes today on clinical care activities including: reviewing chart notes and vital signs reviewing labs reviewing studies discussion with oracle manufacturing consultant examining and counseling the patient counseling the patient's family writing orders documentation Coding Level of Care Code 75364 SUB INP/OBS CARE 3/50MIN Diagnoses Seizure R56.9 Chest pain R07.9 Type 2 diabetes mellitus E11.9 Hydronephrosis N13.30 Hydronephrosis type: unspecified (4) Hydronephrosis Hydronephrosis type: unspecified Qualified Code(s): N13.30 - Unspecified hydronephrosis
[2024-05-26] MEDS: PREMARIN VAG CRM 14 APPLN/30 GM TUBE PV SCH (20:18)
--- NOTE | 2024-05-26 22:00 | Cardiology Consultation ---
Date of Consultation May 26, 2024 Assessment & Plan (1) Seizure-like activity: (2) Chest pain: Plan ASSESSMENT/PLAN: 1. Loss of consciousness: Does not appear to be cardiac in nature. She sounds to have had a postictal event after seizure-like activity. Neurology believes seizure-like activity as well. Can consider outpatient monitor to evaluate for arrhythmia, but once again her event does not appear to be arrhythmic in nature. 2. Chest pain: Has had chronic intermittent chest pain. She did not have any chest discomfort the day of her presentation per her report. She did not present with acute coronary syndrome. Could consider repeat outpatient noninvas estela ischemic evaluation. Follow-up with Dr. Ackerman. 3. Disposition: Cardiology will sign off at this time. Please call with any further questions or concerns. Patient care communicated with Dr. Light of the primary hospitalist service. Thank you for allowing me to participate in the care of your patient. Please call for any other questions or concerns. Sincerely, Nicko Alicia M.D. History of Present Illness Reason for Consultation: "syncope" Requesting Physician: Dr. Mason Attending Physician: Gigi Cruz MD History of Present Illness Ms. Licona is a pleasant 64-year-old female with a history significant for type 2 diabetes, hypertension, and dyslipidemia. She has been seen in the outpatient setting by Dr. Ackerman for chest pain. She has had the following studies/procedures: 1. Stress echo 06/19/2023 [facility]: Negative stress echo for ischemia at 109% MPHR. 6 minutes 3 seconds Sky protocol. Resting echo with normal biventricular systolic function and no significant valvular abnormalities. 2. Echo 05/26/2024 [facility]: Normal LV size, wall motion, systolic function. EF 65-70%. No LVH. Mild left atrial dilation. No significant valvular abnorma lities. Normal RVSP. On the day of presentation, 05/25/2024, she was in [employer] with family and she was playing hide and go seek with her granddaughter. She felt warm/hot and walked down the aisle. She complained of shortness of breath and had near syncope. She sat down. She does not remember these events. She then began shaking and was stiff in all 4 extremities. Her eyes rolled back and she bit her tongue. This lasted for 3 to 5 minutes but she was still unresponsive at its completion. A mask with supplemental oxygen was applied by EMS and she awakened. She refused supplemental oxygen and apparently did not recognize her son. She was talking but does not remember these events following her episode. She remembers being in EMS when leaving [facility] to come here. She then remained fatigued for hours. She now feels back to baseline. She had the flu approximately 2 weeks ago and underwent treatment. She feels recovered in that regard. She remains active but does not exercise. She appears to be dyspneic on exertion when walking from her car to her house but she does not feel short of breath. This was an observation made by her son. 2 days ago, she had substernal chest discomfort while cleaning in her home that lasted for approximately 10 minutes with radiation to the left arm. It resolved with sitting. She took aspirin 81 mg. She had another episode at rest later that day and took another aspirin. The chest pain was stabbing. She has not had any further chest pain. She is chest pain-free. She was seen late this afternoon with her son and daughter at the bedside. She was seen by neurology earlier today who believes that her loss of consciousness was suggestive of seizure-like event. Review of systems: As above. Family history: Father had PR at the age of 63. Social history: She denies tobacco, alcohol, or drug abuse. She lives alone. Not . Has a son and a daughter, who are present at the bedside. Allergies Allergy/AdvReac Type Severity Reaction Status Date / Time Penicillins Allergy Severe Tongue Verified 05/06/24 14:49 swelling, hives Sulfa (Sulfonamide Allergy Severe Tongue Verified 05/06/24 14:49 Antibiotics) swelling, hives amoxicillin Allergy Unknown Tongue Verified 05/06/24 14:49 swelling, blistering metformin AdvReac Intermediate GI distress Verified 05/06/24 14:49 rosuvastatin AdvReac Intermediate Muscle Pain Verified 05/06/24 14:49 Sulfate Allergy Severe Tongue Uncoded 05/06/24 14:49 swelling, hives Home Medications Medication Instructions Recorded Confirmed Type docusate sodium 100 mg capsule 100 mg PO DAILY PRN Constipation 12/27/23 05/25/24 History (Stool Softener) ibuprofen 600 mg tablet 600 mg PO BID PRN Pain 12/27/23 05/25/24 History multivitamin-ferrous 1 tab PO DAILY 03/03/24 05/25/24 History fumarate-folic acid 18 mg-400 mcg tablet (Centrum Women) pantoprazole 40 mg tablet,delayed 40 mg PO QAM #90 tabs 04/11/24 05/25/24 Rx release cholecalciferol (vitamin D3) 50 50 mcg PO DAILY 04/25/24 05/25/24 History mcg (2,000 unit) tablet (Vitamin D3) conjugated estrogens 0.625 mg/gram 0.625 mg vaginal UD 04/25/24 05/25/24 History vaginal cream (Premarin) tirzepatide 5 mg/0.5 mL 5 mg (0.5 mL) subcut .weekly 4 05/19/24 05/25/24 Rx subcutaneous pen injector weeks #2 mL Patient History Medical History Leukopenia not aware Eczema Gross hematuria Bronchitis Seasonal hx, reason for inhaler PRN per pt, no recent issues/inhaler use Splenomegaly pt denies/unaware Hx of hydronephrosis Dyslipidemia pt denies Hx of chest pain early 2023, cardiac work up was negative, followed with [facility] and discharged from their care Type 2 diabetes mellitus NIDDM Hypertension hx of medication, no current medication and states it is stable. History of bronchitis Seasonal hx, reason for inhaler PRN per pt, no recent issues/inhaler use Chronic back pain constant back pain for the last year, unsure cause - currently doing physical therapy weekly Abdominal pain "comes and goes" Constipation and diarrhea Rectal prolapse currently has physical therapy weekly Arthritis Depression Hx Thyroid nodule s/p biopsy (benign) Hypothyroidism Remote hx, euthyroid labs/no meds GERD (gastroesophageal reflux disease) controlled Surgical History S/P foot surgery, right History of pyeloplasty (2020) S/P bladder repair History of cataract surgery History of colonoscopy History of surgery History of cystoscopy History of cholecystectomy H/O tubal ligation Family History Sister Family history of reaction to anesthesia Denies family history of Ovarian cancer Prostate cancer Breast cancer Lung cancer Colorectal cancer Social History Smoking Status: Never smoker 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); Do You Dip or Chew Tobacco: No; Hx Alcohol Use: No Hx Substance Use: No Preferred Language: Latvian Communication Ability: Effective Visual Impairment: No Limitations Hearing Ability: Normal Media Intern Required: No Beliefs That Will Affect Care: None marital status: Current Living Situation: Alone current occupational status: employed 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 Alert. HEENT: Anicteric sclera. Neck: No JVD. No bruits. Normal carotid upstrokes bilaterally. Cardiac: Regular. Normal S1-S2. No murmurs, rubs, or gallops. Pulmonary: Clear to auscultation bilaterally without wheezes, rales, or rhonchi. Abdomen: Soft, nontender, nondistended, with normoactive bowel sounds. No bruits noted. Extremities: 2+ radial pulses bilaterally. 2+ posterior tibialis pulses bilaterally. No edema or cyanosis. Results & Data Vital Signs (Past 12 Hours) Vital Signs Temp Pulse Pulse Resp BP Pulse Ox O2 Del Method 05/26/24 19:50 37.0 C 72 18 159/95 H 94 Room Air 05/26/24 15:55 37.0 C 66 18 148/77 H 95 Room Air 05/26/24 12:56 72 05/26/24 11:43 36.9 C 67 17 95/50 L 97 Room Air Laboratory Results Laboratory Results - last 24 hr 05/25/24 05/26/24 23:10 05:50 WBC 4.25 L RBC 4.00 L Hgb 11.8 L Hct 35.0 L MCV 87.5 MCH 29.5 MCHC 33.7 RDW Std Deviation 41.4 RDW Coeff of Christiano 12.8 Plt Count 161 MPV 9.4 Immature Gran % (Auto) 0.2 Neut % (Auto) 60.7 Lymph % (Auto) 20.7 Clayton % (Auto) 13.9 Eos % (Auto) 3.8 Baso % (Auto) 0.7 Neut # (Auto) 2.58 Lymph # (Auto) 0.88 L Clayton # (Auto) 0.59 Eos # (Auto) 0.16 Baso # (Auto) 0.03 Immature Gran # (Auto) 0.01 Sodium 141 Potassium 3.9 D Chloride 108 H Carbon Dioxide 27 Anion Gap 6 BUN 12 Creatinine 0.80 Est Cr Clr Drug Dosing 78.9 eGFR 81.72 BUN/Creatinine Ratio 15.0 Glucose 92 Calcium 9.0 Magnesium 1.9 Total Bilirubin 0.6 AST 25 ALT 24 Alkaline Phosphatase 56 Troponin I High Sens 16.8 H D 9.4 D Total Protein 6.6 Albumin 3.6 Globulin 3.0 Albumin/Globulin Ratio 1.2 Hepatitis C Ab Screen Negative Diagnostic Findings Telemetry personally reviewed: Sinus rhythm. No arrhythmia. Echo reviewed as noted above in HPI. ECGs personally reviewed: ECG 05/25/2024 at 1456: Sinus rhythm 94 bpm. LVH with repolarization abnormality. ECG 05/26/2024 at 4:46 AM: Sinus rhythm 70 bpm. LVH. Labs reviewed and notable for peak high-sensitivity troponin of 16, normal potassium, normal renal function, normal magnesium, normal transaminase levels, mild anemia. Brain MRI 05/25/2024: Possible minimal chronic microvascular ischemic changes. Possible prior ischemic insult. No acute infarct or hemorrhage. Medications Administered Current Inpatient Medications Acetaminophen (Acetaminophen 325 Mg Tab) 650 mg PO Q4H PRN PRN Reason: Pain or Fever Stop: 06/24/24 20:42 Last Admin: 05/26/24 20:17 Dose: 650 mg Docusate Sodium (Docusate Sodium 100 Mg Cap) 100 mg PO DAILY PRN PRN Reason: Constipation Stop: 06/24/24 20:42 Estrogens Conjugated (Premarin Vag Crm 14 Appln/30 Gm Tube) 1 appln PV MoTh@2100 [facility] Stop: 06/25/24 20:59 Last Admin: 05/26/24 20:18 Dose: 1 appln Miscellaneous ((Tirzepatide 5 Mg/0.5 Ml Pen Injector)--Order Awaiting Action) 1 each N/A QS [facility] Stop: 06/25/24 00:00 Last Admin: 05/26/24 16:39 Dose: Not Given Pantoprazole Sodium (Pantoprazole 40 Mg Tab) 40 mg PO QAM [facility] Stop: 06/25/24 08:59 Last Admin: 05/26/24 09:04 Dose: 40 mg PG Care Time/CCT Total # of Minutes Spent Total Time Spent with Patient: Total time spent is greater than 50% in coordination of care (as documented) at patient's floor/unit and/or counseling patient: Coding Level of Care Code 21122 INT INP/OBS CARE 2/55MIN Diagnoses Seizure-like activity R56.9 Chest pain R07.9
[2024-05-27 03:24] VITALS: RESP 18
[2024-05-27 11:49] VITALS: PULSE 71; TEMP 98.4; O2SAT 95
--- NOTE | 2024-05-27 12:10 | Discharge Summary ---
Discharge Summary Date of Service date of admission - May 25, 2024 date of discharge - May 27, 2024 Principal Dx & Hospital Course #1 = Principal Diagnosis (1) Seizure: 64yo with diabetes who had recent influenza A infection treated with Tamiflu. Presented with a seizure-like episode while shopping at [employer] with her son and family. By report she felt dizzy/lightheaded prior to the event. She was helped into a chair, then proceeded to pass out. She then had tonic-clonic movements of all 4 extremities. The episode lasted about 3-5 minutes. She bit her tongue during the event. After resolution she had what appeared to be a postictal period and was confused. Initially was taken to the ER at [facility]. She was subsequently transferred to [facility] ED. She underwent Telestroke evaluation in our ED. Stroke was not suspected. However, Telestroke did advise MRI brain, etc. MRI brain was negative for acute stroke. CT head & CTA head/neck were all wnl at [facility] before transfer here. No carotid stenosis, no intracranial stenosis, etc. [facility] Neurology was consulted. It was suspected that she did indeed have a seizure or seizure-like event. However, anti-epileptic medicine was not advised. 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 I could not find any EMS record of hypoglycemia from [facility]. (2) Chest pain: Patient was evaluated for chest pain in spring 2023 by [facility] cardiology. At that time she had a normal stress echocardiogram. Patient reported 2 episodes of chest pain the weekend prior to her seizure event (about 2 days prior to admission). Each episode lasted about 10 minutes. Peak HS troponin here at [facility] was 16.8 (normal <14). EKG did not show ischemic changes. Echocardiogram showed normal EF of 65-70% with normal LV wall motion. She did not have any chest pain during the stay. [facility] cardiology was consulted and felt that there was no evidence of ACS. They recommended outpatient follow-up with Dr Tarun Ackerman and if symptoms recur a repeat ischemic evaluation could be pursued at that time. She will continue low-dose aspirin 81mg daily. 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 She was in [employer] today when she suddenly started feeling hot and presyncope. She also wants to get her chair and sat down and less lasting she remembers until waking up at [facility] emergency room. On discussion with her son over the phone while sitting down she became stiff and then started shaking all 4 limbs for around 3 to 5 minutes while he kept her in the chair. Her eyes appeared to go to the side and appeared to be foaming in the mouth. She has no history of seizures. In [facility] emergency room telestroke were contacted and recommended admission for stroke workup. She also had ST depressions in the lateral leads and due to no cardiology coverage and delay in getting lab tests as the lab was down she was accepted for ER transfer by Dr. Tran. She is currently chest pain-free and feels mostly back to her baseline at this time. This is on a background of being diagnosed with influenza on May 16. She has been resting with generalized fatigue and weakness. Respiratory symptoms have improved and she only started getting out of the house yesterday. She is also been having chest pains. This was also noted in previous cardiology notes although she cannot tell me whether this is the same feeling but she does note this is worse than usual. Initial chest pain started yesterday lasting for half an hour at approximately 10 AM with radiation down her elbow, unknown exertional, central, no change with food or inspiration. She had a similar episode last night with the same characteristic but less severe lasting for 15 to 20 minutes. No history of heart attack or strokes. Discharge Exam gen - NAD, looks well mouth - tongue bite gareth anterior 1/3 of tongue neck - no JVD heart - RRR, s1 s2, no murmur lungs - CTA b/l abd - soft NT ND BS+ ext - no edema, pulses 2+ b/l neuro - strength 5/5 x 4 exts; no facial droop; speech clear/fluent Discharge Plan Discharge Items Patient Disposition: Home - Self-Care Reason For Visit: SEIZURE LIKE ACTIVITY, SYNCOPE Discharge Diagnosis: 1. seizure-like activity 2. syncope (passing out episode) 3. chest pain - no evidence of heart attack 4. chronic left-sided hydronephrosis - followed by urology 5. recent influenza infection - resolved 6. diabetes Activity: Per Instructions section Exercise/Sports: Wait until after follow-up appointment Driving/Machine Use: NO DRIVING OR OPERATING HEAVY MACHINERY Non-emergency contact: Primary Care Provider, Social Sciences Department Chair and Neurologist Call non-emergency contact if: you have any medication questions Follow-up/Referrals: Apollo Clayton CRNP [Primary Care Provider] - 06/03/24 11:00 am (within 1 week Hospital follow up scheduled with W[facility] on 06/03/24 at 11:00) Suhas Ackerman MD [Physician] - 06/02/24 2:00 pm (2-4 weeks, [facility] Cardiology at the [place] office; follow-up for chest pain Hospital follow up with Manjinder Goode 06/02/24 at 2:00 at [place] office ) Rito Garcia MD [Physician] - (2-3 weeks; follow-up for seizure-like activity. Office will call pt to schedule ) Diet: Carb Consistent or DM2 Addtl Attending Provider Instructions: Ms Licona, You were hospitalized after having had an episode of passing out followed by shaking of the arms/legs. The episode may have been a seizure or seizure-like episode. You were seen by [facility] Neurology. You underwent MRI brain which did not show any acute stroke, bleeding, tumor, etc. [facility] Neurology recommends NO DRIVING any motor vehicle for potentially up to 6 months. This also includes NO use of heavy machinery. DO NOT take a tub bath unattended. DO NOT SWIM in a swimming pool or hot tub. Neurology wants to see you in their clinic shortly after discharge. [facility] Cardiology saw you in consult due to the recent episode of chest pain. Heart monitoring was normal while here. You had no evidence of heart attack. Echocardiogram (heart ultrasound) was normal. Cardiology also recommended close follow-up with Dr Tarun Ackerman shortly after discharge. Please plan to take it easy for a few days as you transition home. Focus on good nutrition, hydration, and sleep over the next few days as you recover from the hospital stay as well as from the recent flu infection. As we discussed please take an uyel-cao-afhwabp baby aspirin 81mg daily unless cardiology advises otherwise. Note that the bite gareth on the tongue will resolve over the next 5-7 days. You can do warm water (6-8 ounces) mixed with a teaspoon of salt and gently swish, then spit, to help keep the oral cavity clean and promote faster resolution. If at any point you feel dizzy or lightheaded please check your blood sugar at that time to ensure that low blood sugar ("hypoglycemia") is not the cause of your dizziness or lightheadedness. With the recent increase in your tirzepatide you are at higher risk of having low blood sugars (which can cause shakes & seizures). Follow-up - see separate section Return to [facility] if - * you have severe dizziness or lightheadedness * you have any symptoms that remind you of the recent episode * you have a recurrent seizure or seizure-like episode * you have recurrent chest pains * you have shortness of breath * any other concerns It was our pleasure to care for you! Pending Studies at Discharge: No Stand-Alone Forms: My [facility] [place], Work/School Release, Smoking Cessation Medications and DC Order Prescriptions: New aspirin 81 mg tablet,delayed release (DR/EC) 81 mg PO DAILY Qty: 90 0RF Rx Instructions: purchase kewx-zop-baixezy. Continued pantoprazole 40 mg tablet,delayed release (DR/EC) 40 mg PO QAM Qty: 90 3RF tirzepatide 5 mg/0.5 mL pen injector 5 mg subcut .weekly 28 Days Qty: 2 2RF Rx Instructions: Sunday Centrum Women 18-400 mg-mcg tablet 1 tab PO DAILY ibuprofen 600 mg tablet 600 mg PO BID PRN (Reason: Pain) docusate sodium [Stool Softener] 100 mg Capsule 100 mg PO DAILY PRN (Reason: Constipation) Premarin 0.625 mg/gram Cream 0.625 mg VAGINAL UD Rx Instructions: TWICE PER WEEK cholecalciferol (vitamin D3) [Vitamin D3] 50 mcg (2,000 unit) Tablet 50 mcg PO DAILY No Action prednisone 10 mg tablet See Rx Instructions PO DAILY Qty: 30 0RF Rx Instructions: Take 4 tabs daily for 3 days, then 3 tabs daily for 3 days, then 2 tabs daily for 3 days, then 1 tab daily for 3 days. Discharge Orders: Discharge Order (Routine); Ordered 05/27/24 Ordered By: Gigi Cruz Admission Data Admit Date/Time: 05/25/24 17:29 Attending Provider: Gigi Cruz Admit Provider: Gigi Mason Primary Care Provider: Apollo Clayton Other Providers: Orestes Alicia; Rito Garcia Other Interventions: Discharge Summary Assessment (RN) Last Done: 05/27/24 12:13 Hospital Stay Data Consultations [facility] Cardiology - Nicko Alicia MD [facility] Neurology - Rito Garcia MD Procedures Performed Echocardiogram: EF 65-70%, normal LV wall motion, normal valve function Diagnostic Imagining Performed Chest X-Ray 05/25/24 15:09 INDICATION: Chest pain. TECHNIQUE: Frontal radiograph of the chest. COMPARISON: Radiograph from 01/11/2021. FINDINGS: Cardiomegaly. Mild pulmonary vascular congestion. No infiltrate, pleural effusion or pneumothorax. No acute osseous abnormality evident. IMPRESSION: Mild pulmonary vascular congestion. Electronically signed by Nicko Iverson 05-25-2024 3:26 PM Brain MRI 05/25/24 17:01 EXAM: MR brain seizure wo/w con CLINICAL HISTORY: Seizure-like activity TECHNIQUE: MRI of the brain was performed with and without intravenous contrast administration. Sequences obtained include pre-contrast and post-contrast T1-weighted, T2-weighted, FLAIR (Fluid-Attenuated Inversion Recovery), DWI (Diffusion-Weighted Imaging), and ADC (Apparent Diffusion Coefficient) sequences. COMPARISON: No previous studies are available for comparison. FINDINGS: Brain Parenchyma: No evidence of acute infarction or hemorrhage. A 5 x 4.5 mm T2/FLAIR hyperintense focus is seen in the deep white matter of the right basifrontal region, with no diffusion restriction or contrast enhancement, this could represent sequelae to prior ischemic insult. Few tiny FLAIR hyperintense foci are seen in the subcortical white matter of the bilateral cerebral hemisphere, likely representing minimal chronic microvascular ischemic changes. Post-Contrast Findings: No abnormal enhancement of the brain parenchyma or meninges. Ventricles and Sulci: The ventricular system is within normal limits without evidence of hydrocephalus. Sulci and cisternal spaces are age-appropriate. Brainstem and Cerebellum: Normal appearance of the brainstem and cerebellum without focal lesions or abnormal enhancement. Skull and Calvarium: No evidence of skull vault lesions or abnormal marrow signal within the calvarium. IMPRESSION: 1. No evidence of acute infarction or hemorrhage. 2. A 5 x 4.5 mm T2/FLAIR hyperintense focus in the deep white matter of right basifrontal region, with no diffusion restriction or contrast enhancement, could represent sequelae to prior ischemic insult. 3. Few tiny FLAIR hyperintense foci in the subcortical white matter of the bilateral cerebral hemisphere, likely representing minimal chronic microvascular ischemic changes. Electronically signed by Kelly De Souza 05-25-2024 10:18 PM Pending Results Patient Have Any Pending Studies at Discharge: No Discharge Instructions Given to Patient (Per Discharging Provider) Irvin Adams were hospitalized after having had an episode of passing out followed by sh aking of the arms/legs. The episode may have been a seizure or seizure-like episode. You were seen by [facility]. You underwent MRI brain which did not show any acute stroke, bleeding, tumor, etc. [facility] recommends NO DRIVING any motor vehicle for potentially up to 6 months. This also includes NO use of heavy machinery. DO NOT take a tub bath unattended. DO NOT SWIM in a swimming pool or hot tub. Neurology wants to see you in their clinic shortly after discharge. [facility] saw you in consult due to the recent episode of chest pain. Heart monitoring was normal while here. You had no evidence of heart attack. Echocardiogram (heart ultrasound) was normal. Cardiology also recommended close follow-up with Dr Tarun Ackerman shortly after discharge. Please plan to take it easy for a few days as you transition home. Focus on good nutrition, hydration, and sleep over the next few days as you recover from the hospital stay as well as from the recent flu infection. As we discussed please take an juvl-wmv-zzcowyv baby aspirin 81mg daily unless cardiology advises otherwise. Note that the bite gareth on the tongue will resolve over the next 5-7 days. You can do warm water (6-8 ounces) mixed with a teaspoon of salt and gently swish, then spit, to help keep the oral cavity clean and promote faster resolution. If at any point you feel dizzy or lightheaded please check your blood sugar at that time to ensure that low blood sugar ("hypoglycemia") is not the cause of your dizziness or lightheadedness. With the recent increase in your tirzepatide you are at higher risk of having low blood sugars (which can cause shakes & seizures). Follow-up - see separate section Return to [facility] [place] if - * you have severe dizziness or lightheadedness * you have any symptoms that remind you of the recent episode * you have a recurrent seizure or seizure-like episode * you have recurrent chest pains * you have shortness of breath * any other concerns It was our pleasure to care for you! Total Time Total Time Spent Total Time Spent (In Minutes): 40 Coding Level of Care Code 23244 INP/OBS DISCH >30 MIN Diagnoses Seizure R56.9 Chest pain R07.9 Type 2 diabetes mellitus E11.9 Hydronephrosis N13.30 Hydronephrosis type: unspecified
[2024-05-27 12:14] VITALS: BP 173/93
--- NOTE | 2024-05-27 22:20 | Electrocardiogram Report ---
Test Reason : Blood Pressure : */* mmHG Vent. Rate : 70 BPM Atrial Rate : 70 BPM P-R Int : 192 ms QRS Dur : 80 ms QT Int : 386 ms P-R-T Axes : 48 -11 41 degrees QTcB Int : 416 ms Normal sinus rhythm Minimal voltage criteria for LVH, may be normal variant ( R in aVL ) Borderline ECG When compared with ECG of 25-May-2024 15:03, No significant change was found Confirmed by Orestes Alicia ([id number]) on 05/27/2024 10:20:35 PM Referred By: REFERRED SELF Confirmed By: Orestes Alicia
--- NOTE | 2024-05-27 22:23 | Electrocardiogram Report ---
Test Reason : Blood Pressure : */* mmHG Vent. Rate : 66 BPM Atrial Rate : 66 BPM P-R Int : 182 ms QRS Dur : 78 ms QT Int : 400 ms P-R-T Axes : 51 -10 53 degrees QTcB Int : 419 ms Normal sinus rhythm Normal ECG When compared with ECG of 26-May-2024 04:46, No significant change was found Confirmed by Orestes Alicia ([id number]) on 05/27/2024 10:22:34 PM Referred By: REFERRED SELF Confirmed By: Orestes Alicia
== END 2024-05-27 12:51 | disposition home or self-care (01) | DRG 101 ==
LOC: ED 14:51 → SUATTDRO 17:29 → INTOOBSV 17:29 → 2S 17:29
DX: Z88.2 Allergy status to sulfonamides; R55 Syncope and collapse; Z88.0 Allergy status to penicillin; Z79.85 Long-term (current) use of injectable non-insulin antidiabetic drugs; Z79.890 Hormone replacement therapy; N13.30 Unspecified hydronephrosis; Z77.22 Contact with and (suspected) exposure to environmental tobacco smoke (acute) (chronic); R56.9 Unspecified convulsions; R07.2 Precordial pain; Z79.899 Other long term (current) drug therapy; E78.5 Hyperlipidemia, unspecified; Z88.8 Allergy status to other drugs, medicaments and biological substances; E11.9 Type 2 diabetes mellitus without complications; I10 Essential (primary) hypertension

== ENCOUNTER 2025-02-08 14:53 | Observation (INO) ==
[2025-02-08] MEDS: SODIUM CHLORIDE 0.9% 1,000 ML IV ONE (15:31)
[2025-02-08] MEDS: ACETAMINOPHEN 1,000 MG/100 ML VIAL IV STA (15:31)
[2025-02-08 15:47] LABS: Hematocrit (blood only) 39.6 % (37.0-47.0); Hemoglobin 13.0 g/dl (12.0-16.0); Immature Granulocytes # (auto) 0.01 K/uL (0.01-0.20); Immature Granulocytes % (auto) 0.2 %; Mean Corpuscular Hemoglobin 28.8 pg (25.0-34.0); Mean Corpuscular Volume 87.8 fL (80.0-100.0); Platelet Count 141 K/uL (130-400); RDW Standard Deviation 42.3 fL (36.4-46.3); Red Blood Count 4.51 M/uL (4.20-5.40); White Blood Count 5.09 K/ul (4.8-10.8)
[2025-02-08] MEDS: ONDANSETRON INJ 2 MG/ML 2 ML VIAL IV STA (15:57)
[2025-02-08] MEDS: MoRPHine SULFATE 4 MG/ML 1 ML CARP\\VIAL IV STA (15:57)
[2025-02-08 16:02] LABS: Alanine Aminotransferase 15.0 U/L (7-52); Albumin Globulin Ratio 1.1 (0.9-2); Albumin Level 4.1 gm/dl (3.4-5.0); Alkaline Phosphatase 58.0 U/L (34-104); Anion Gap 8.0 (3-11); Bilirubin,Total 0.5 mg/dl (0.2-1.0); Blood Urea Nitrogen 19.0 mg/dl (6-23); Calcium 9.8 mg/dl (8.6-10.3); Carbon Dioxide 29.0 mmol/L (21-32); Chloride 104.0 mmol/L (98-107); Creatinine Clr Calc Pharmacy 65.2 ml/min; Globulin 3.9 gm/dl (2.5-4.0); Glucose 101.0 mg/dl (70-99(Fasting)); Lipase 48.0 U/L (11-82); Potassium 3.5 mmol/L (3.5-5.1); Sodium 141.0 mmol/L (136-145); Total Protein 8.0 gm/dl (6.0-8.3)
--- NOTE | 2025-02-08 16:06 | Emergency Department Note ---
Impression & Plan Intractable abdominal pain, UPJ (ureteropelvic junction) obstruction, Left flank pain, Diarrhea ED Provider Note NAME: VLAD WONG AGE: 65 SEX: F : 1960 ARRIVES VIA: Walk-In INFORMANT: Patient ED PROVIDER(S): Herman Villalobos MD CHIEF COMPLAINT: Left flank pain PLAN: Disposition: Admit MEDICAL DECISION MAKING: The patient a pleasant 65-year-old woman with a past medical history of acid reflux, UTI, pyelonephritis, history of chronic UPJ obstruction who presents to the emergency department for evaluation of left-sided abdominal/flank pain that began abruptly today at 1230 associated nausea. She denies vomiting or diarrhea. She reports a history of kidney stones. Denies any blood in her urine or burning of urination. Denies any fevers. She reports she has been having diarrhea over the past week which is not typical for her. She denies any recent antibiotics. Denies fevers. On evaluation patient is no distress, afebrile with blood pressure elevated in the 200s/90s and vital signs otherwise stable. She appears clinically dry. She exhibits mild left sided abdominal/left flank discomfort without discrete tenderness. There is no guarding or rebound. WBC within normal limits. There is no neutrophilia or left shift. H/H and platelets within normal limits. Chemistry without metabolic acidosis. BUN/creatinine is 20 consistent with patient's clinically dry appearance. LFTs unremarkable. Lipase normal. UA without evidence of infection. Urine culture was added given patient's history of upper infection. CT of the ab pelvis was performed and demonstrates no severe left UPJ where severe left hydronephrosis is noted to be similar to prior without hydroureter and still favors chronic/congenital UPJ obstruction. There is no ureteral stone. Description of increased left perinephric fat stranding and free fluid is noted however. Upon evaluation patient denied any significant improvement in symptoms following IV hydration, IV APAP and repeat doses of IV morphine. However blood pressure with improving trend. We did review her CT findings in detail and images were also reviewed at the bedside as when we discussed her history of her chronic "swollen kidney". Patient reported that she did not know "anything about that". She reports she only knew that she was to follow-up with [facility] urology but when attempted to make an appointment she understood that they were scheduling over 6 months from that time and so she never followed up. Unclear at this time whether or not this finding correlates with the patient's pain given the fact that the the finding appears stable though with some inflammatory change described and given the patient has been also having diarrhea. However, given her history of upper infection and the patient's report of intractable pain we did agree to refer to the hospitalist service for admission and further management. Blood cultures were ordered and urine culture was also ordered given urinalysis with would not reflex. Empiric treatment with IV ceftriaxone initiated. Case was discussed with JEFF Sheikh PA-C with [facility] hospitalist, who will evaluate the patient for admission. Further management per admitting team. Triage Nursing notes reviewed and agree them. Prior/external medical records reviewed Vital Signs: reviewed Differential diagnosis: Renal colic, UTI, appendicitis, diverticulitis, mesenteric ischemia, aortic pathology, infections, inflammatory bowel disease, PUD, biliary pathology, as well as other pathologies. ER treatment provided: See below. Diagnostics interpreted by me: ECG: Normal sinus rhythm, 64 bpm, no ectopy, LVH, no overt ST elevation impression, QTc 404 QTC 94 Cardiac Monitoring: An order for continuous cardiac monitoring was placed and demonstrated Normal sinus rhythm, 64 bpm, no ectopy Laboratory studies: See below Imaging studies: See below Consultation(s): JEFF Sheikh PA-C with [facility] HPI: Per MDM. ROS: See above HPI for pertinent positives & negatives. A total of 10 systems reviewed and were otherwise negative. VITALS:See Below PHYSICAL EXAMINATION: GENERAL: Awake, alert, in no distress, BMI 28.8 HENT: Normocephalic, atraumatic. Oropharynx with dry mucous membranes and otherwise unremarkable. EYES: Normal conjunctiva. Sclera non-icteric. NECK: Supple. No nuchal rigidity. FROM. No JVD. RESPIRATORY: Clear to auscultation. CARDIAC: Regular rate, normal rhythm. Extremities warm and well perfused. Pulses equal. ABDOMEN: Soft, non-distended. Mild left sided abdominal/left flank discomfort without discrete tenderness. There is no guarding or rebound. MUSCULOSKELETAL: Chest examination reveals no tenderness. The back is symmetrical on inspection without obvious abnormality. There is no CVA tenderness to palpation. No joint edema. LOWER EXTREMITIES: Calves are equal size bilaterally and non-tender. No edema. No discoloration. NEURO: Normal sensorium. No sensory or motor deficits noted. SKIN: No rash or jaundice noted. Herman Villalobos MD Past Med/Surg History Problem List (Updated 02/09/25 @ 00:56 by Herman Villalobos MD) Diarrhea (Acute) Pyelonephritis of left kidney UPJ obstruction, congenital Hydronephrosis of left kidney Left flank pain (Acute) Intractable abdominal pain (Acute) Type 2 diabetes mellitus UPJ (ureteropelvic junction) obstruction (Acute) Pyelonephritis of left kidney (Acute) Positive GORGE (antinuclear antibody) PAC (premature atrial contraction) Seizure-like activity Syncope (Acute) Seizure (Acute) Abnormal stress test Lumbar spondylolysis Umbilical hernia Hypertension Ureteral stricture Coronary artery calcification Arthritis, multiple joint involvement Vaginal prolapse Prolapse of bladder Cystocoele Splenomegaly Medical History Eczema Coccydynia Kidney stone Hx Gross hematuria Bronchitis Seasonal hx, reason for inhaler PRN per pt, no recent issues/inhaler use Splenomegaly pt denies/unaware Hx of hydronephrosis Dyslipidemia Hx of chest pain early 2023, cardiac work up was negative, followed with [facility] and discharged from their care Hypertension hx of medication, no current medication and states it is stable. History of bronchitis Seasonal hx, reason for inhaler PRN per pt, no recent issues/inhaler use Chronic back pain constant back pain for the last year, unsure cause - currently doing physical therapy weekly Abdominal pain "comes and goes" Constipation and diarrhea Rectal prolapse currently has physical therapy weekly Arthritis Depression Hx Thyroid nodule s/p biopsy (benign) Hypothyroidism Remote hx, euthyroid labs/no meds GERD (gastroesophageal reflux disease) controlled Surgical History H/O pyloroplasty S/P foot surgery, right achilles tendon repair History of pyeloplasty (2020) left - with Dr. 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); Do You Dip or Chew Tobacco: No; Hx Alcohol Use: No Hx Substance Use: No Preferred Language: Sami Communication Ability: Effective Visual Impairment: No Limitations Hearing Ability: Normal Halal [employer] Required: No Beliefs That Will Affect Care: None marital status: Current Living Situation: Alone current occupational status: employed current occupation: high school industrial arts teacher How many Children do You have: 2 Other Information That Helps Us Care for You: No Feels Safe at Home: Yes Safety Concerns: Feels Safe At This Time Childhood Exposure to Second-Hand Smoke: No Diet: regular caffeine: No during the past year weight has: remained stable Dental Care, Regularly: Yes Physical Activity Frequency: Daily Physical Activity Frequency Comment: housework; yard work; babysits Seatbelt Use: always Sunscreen Use: Yes Assistive Devices: Denture - Upper Allergies Allergies Allergy/AdvReac Type Severity Reaction Status Date / Time Penicillins Allergy Severe Tongue Verified 01/20/25 09:26 swelling, hives Sulfa (Sulfonamide Allergy Severe Tongue Verified 01/20/25 09:26 Antibiotics) swelling, hives amoxicillin Allergy Unknown Tongue Verified 01/20/25 09:26 swelling, blistering metformin AdvReac Intermediate GI distress Verified 01/20/25 09:26 rosuvastatin AdvReac Intermediate Muscle Pain Verified 01/20/25 09:26 Sulfate Allergy Severe Tongue Uncoded 01/20/25 09:26 swelling, hives Home Meds Home Medications Medication Instructions Recorded Confirmed docusate sodium 100 mg capsule 100 mg PO DAILY PRN Constipation 12/27/23 02/08/25 (Stool Softener) multivitamin-ferrous 1 tab PO DAILY 03/03/24 02/08/25 fumarate-folic acid 18 mg-400 mcg tablet (Centrum Women) cholecalciferol (vitamin D3) 50 50 mcg PO DAILY 04/25/24 02/08/25 mcg (2,000 unit) tablet (Vitamin D3) conjugated estrogens 0.625 mg/gram 0.625 mg vaginal UD 04/25/24 02/08/25 vaginal cream (Premarin) Previous Rx's Medication Instructions Recorded pantoprazole 40 mg tablet,delayed 40 mg PO QAM #90 tabs 04/11/24 release aspirin 81 mg tablet,delayed 81 mg PO DAILY #90 tabs 05/27/24 release ibuprofen 600 mg tablet 600 mg PO BID PRN Pain #90 tabs 07/02/24 tirzepatide 7.5 mg/0.5 mL 7.5 mg (0.5 mL) subcut Q7D #2 mL 09/17/24 subcutaneous pen injector (Zully) betamethasone dipropionate 0.05 % 1 applic topical BID #45 grams 01/20/25 topical ointment Results & Data (ED) Vital Signs Vital Signs - 24 hr 02/08/25 15:12 02/08/25 16:06 02/08/25 16:07 Temperature 36.6 C Temperature Source Temporal Artery Scan Pulse Rate 70 58 L 63 Pulse Rate from SpO2 Sensor 57 L Respiratory Rate 18 14 Respiratory Effort / Characteristics Non-Labored Spontaneous Respiratory Depth Normal Blood Pressure 217/98 H Blood Pressure Mean 137 Pulse Oximetry 96 94 Oxygen Delivery Method Room Air Sepsis Recent Fever Within 48 Hours No Sepsis New/Unexplained Change in Mental Status No Sepsis Action Taken by Nursing No Action Required 02/08/25 16:45 02/08/25 17:00 02/08/25 18:24 Temperature Temperature Source Pulse Rate 60 62 60 Pulse Rate from SpO2 Sensor 59 L 60 60 Respiratory Rate 19 15 16 Respiratory Effort / Characteristics Respiratory Depth Blood Pressure 182/90 H Blood Pressure Mean 120 Pulse Oximetry 95 96 97 Oxygen Delivery Method Sepsis Recent Fever Within 48 Hours Sepsis New/Unexplained Change in Mental Status Sepsis Action Taken by Nursing 02/08/25 18:47 02/08/25 19:00 02/08/25 19:33 Temperature Temperature Source Pulse Rate 87 62 59 L Pulse Rate from SpO2 Sensor 63 60 Respiratory Rate 17 17 Respiratory Effort / Characteristics Respiratory Depth Blood Pressure 195/97 H Blood Pressure Mean 129 Pulse Oximetry 97 93 Oxygen Delivery Method Sepsis Recent Fever Within 48 Hours Sepsis New/Unexplained Change in Mental Status Sepsis Action Taken by Nursing Laboratory Data Attestation: I reviewed the patient's lab results. 02/08/25 15:33 02/08/25 15:33 Lab Results 02/08/25 Range/Units 15:33 WBC 5.09 (4.8-10.8) K/ul RBC 4.51 (4.20-5.40) M/uL Hgb 13.0 (12.0-16.0) g/dl Hct 39.6 (37.0-47.0) % MCV 87.8 (80.0-100.0) fL MCH 28.8 (25.0-34.0) pg MCHC 32.8 (32.0-36.0) g/dL RDW Std Deviation 42.3 (36.4-46.3) fL RDW Coeff of Christiano 13.0 (11.5-14.5) % Plt Count 141 (130-400) K/uL MPV 9.3 L (9.4-12.4) fL Immature Gran % (Auto) 0.2 % Neut % (Auto) 60.9 % Lymph % (Auto) 26.7 % [place] % (Auto) 9.6 % Eos % (Auto) 2.0 % Baso % (Auto) 0.6 % Neut # (Auto) 3.10 (1.40-6.50) K/uL Lymph # (Auto) 1.36 (1.20-3.40) K/uL [place] # (Auto) 0.49 (0.11-0.59) K/uL Eos # (Auto) 0.10 (0.00-0.50) K/uL Baso # (Auto) 0.03 (0.00-0.20) K/uL Immature Gran # (Auto) 0.01 (0.01-0.20) K/uL PT 10.9 (9.0-12.0) Seconds INR 1.0 (0.9-1.1) Sodium 141 (136-145) mmol/L Potassium 3.5 (3.5-5.1) mmol/L Chloride 104 (98-107) mmol/L Carbon Dioxide 29 (21-32) mmol/L Anion Gap 8 (3-11) BUN 19 (6-23) mg/dl Creatinine 0.91 (0.6-1.2) mg/dl Est Cr Clr Drug Dosing 65.2 ml/min eGFR 69.58 BUN/Creatinine Ratio 20.9 H (10-20) Glucose 101 H (70-99(Fasting)) mg/dl Calcium 9.8 (8.6-10.3) mg/dl Magnesium 2.0 (1.7-2.4) mg/dl Total Bilirubin 0.5 (0.2-1.0) mg/dl AST 21 (13-39) U/L ALT 15 (7-52) U/L Alkaline Phosphatase 58 (34-104) U/L Total Protein 8.0 (6.0-8.3) gm/dl Albumin 4.1 (3.4-5.0) gm/dl Globulin 3.9 (2.5-4.0) gm/dl Albumin/Globulin Ratio 1.1 (0.9-2) Lipase 48 (11-82) U/L Urine Color Yellow Urine Appearance Clear (Clear) Urine pH 6.5 (4.5-7.5) Ur Specific [place] 1.017 (1.000-1.030) Urine Protein Trace H (Negative) Urine Glucose (UA) Negative (Negative) Urine Ketones Negative (Negative) Urine Blood Negative (Negative) Urine Nitrite Negative (Negative) Urine Bilirubin Negative (Negative) Urine Urobilinogen Negative (Negative) Ur Leukocyte Esterase Negative (Negative) Urine WBC (Auto) 0-5 (0-5) /hpf Urine RBC (Auto) 0-2 (0-2) /hpf U Hyaline Cast (Auto) 0-2 (0-2) /lpf U Epithel Cells (Auto) 0-2 (0-2) /hpf Urine Bacteria (Auto) None Seen (None Seen) Urine Comment Administered Medications Acetaminophen (Acetaminophen 325 Mg Tab) 650 mg PO Q6H [facility] Stop: 03/10/25 21:23 Last Admin: 02/08/25 22:14 Dose: 650 mg Documented By: EKF Hydromorphone HCl (Hydromorphone Inj 0.5 Mg/0.5 Ml Syr) 0.5 mg IV Q3H PRN PRN Reason: Moderate Pain (Scale 4, 5, 6) Stop: 02/22/25 21:23 Last Admin: 02/08/25 22:21 Dose: 0.5 mg Documented By: EKF Lactated Ringer's (Lr) 1,000 mls @ 100 mls/hr IV .Q10H [facility] Stop: 02/09/25 15:59 Last Admin: 02/08/25 22:13 Dose: 100 mls/hr Documented By: EKF Discontinued Medications Sodium Chloride (Nss) 1,000 mls @ 999 mls/hr IV .Q1H1M ONE Stop: 02/08/25 16:19 Last Infusion: 02/08/25 16:41 Dose: Infused Documented By: Admin: 02/08/25 15:31 Dose: 999 mls/hr Documented By: NRB Acetaminophen (Ofirmev) 1,000 mg in 100 mls @ 400 mls/hr IV NOW STA Stop: 02/08/25 15:33 Last Infusion: 02/08/25 15:58 Dose: Infused Documented By: Admin: 02/08/25 15:31 Dose: 400 mls/hr Documented By: NRB Ceftriaxone Sodium (Rocephin) 2,000 mg in 50 mls @ 100 mls/hr IV NOW STA Stop: 02/08/25 19:33 Last Infusion: 02/08/25 21:31 Dose: Infused Documented By: Admin: 02/08/25 20:23 Dose: 100 mls/hr Documented By: NRB Sodium Chloride (Nss) 500 mls @ 999 mls/hr IV .Q31M ONE Stop: 02/08/25 19:38 Last Infusion: 02/08/25 21:31 Dose: Infused Documented By: Admin: 02/08/25 20:23 Dose: 999 mls/hr Documented By: NRB Piperacillin Sod/Tazobactam Sod (Zosyn) 4.5 gm in 100 mls @ 200 mls/hr IV ONE ONE; Protocol Stop: 02/08/25 22:14 Last Infusion: 02/08/25 22:55 Dose: Infused Documented By: Admin: 02/08/25 22:21 Dose: 200 mls/hr Documented By: EKF Ioversol (Optiray 320 100ml) 90 ml IV ONCE ONE Stop: 02/08/25 18:09 Last Admin: 02/08/25 18:08 Dose: 90 ml Documented By: QUINCY Ketorolac Tromethamine (Ketorolac Tromethamine 15 Mg/Ml Vial) 15 mg IV NOW STA Stop: 02/08/25 19:02 Last Admin: 02/08/25 19:29 Dose: 15 mg Documented By: NRB Morphine Sulfate (Morphine Sulfate 4 Mg/Ml 1 Ml Carp\\Vial) 4 mg IV NOW STA Stop: 02/08/25 15:42 Last Admin: 02/08/25 15:57 Dose: 4 mg Documented By: NRB Morphine Sulfate (Morphine Sulfate 10 Mg/Ml Carp/Vial) 6 mg IV NOW STA Stop: 02/08/25 17:06 Last Admin: 02/08/25 17:13 Dose: 6 mg Documented By: NRB Morphine Sulfate (Morphine Sulfate 10 Mg/Ml Carp/Vial) 6 mg IV NOW STA Stop: 02/08/25 19:02 Last Admin: 02/08/25 19:29 Dose: 6 mg Documented By: NRB Ondansetron HCl (Ondansetron Inj 2 Mg/Ml 2 Ml Vial) 4 mg IV NOW STA Stop: 02/08/25 15:42 Last Admin: 02/08/25 15:57 Dose: 4 mg Documented By: NRB Potassium Chloride (Potassium Chloride Crtab 20 Meq Tabcr) 40 meq PO NOW STA Stop: 02/08/25 20:09 Last Admin: 02/08/25 22:13 Dose: 40 meq Documented By: EKF Imaging Data Radiologist's Impression: Abdomen/Pelvis CT 02/08/25 17:05 EXAMINATION: CT of the abdomen and pelvis performed after the administration of IV contrast TECHNIQUE: Helical CT images from the lung bases through the symphysis pubis were obtained with contrast. Coronal and sagittal reformatted images were generated at a workstation for further assessment. Dose reduction techniques were achieved by using automatic exposure control and/or adjustment of mA and/or kV according to patient size and/or use of iterative reconstruction technique. COMPARISON: 09/03/2024, 01/03/2024 HISTORY: Abdominal pain FINDINGS: Lower chest: No consolidation. No pleural effusion or pneumothorax. Liver: No suspicious liver lesions. Portal veins appear patent. Gallbladder: Cholecystectomy Spleen: Normal size. Pancreas: No suspicious pancreatic lesions. The pancreatic duct is not dilated. Adrenal glands: No adrenal nodules. Kidneys: Right-sided renal cyst again seen. Severe left hydronephrosis again seen. There is left perinephric fat stranding and free fluid which is increased from prior. No hydroureter or ureteral stone. Bladder / Pelvic organs: Unremarkable. Bowel: No bowel obstruction. No abnormal bowel wall thickening. The appendix is unremarkable. Lymph nodes: No retroperitoneal, mesenteric, or pelvic lymphadenopathy. Peritoneum / Retroperitoneum: No free fluid or air within the abdomen. Vessels: No infrarenal aortic aneurysm. Bones and soft tissues: No suspicious lesion in the bones. IMPRESSION: Severe left hydronephrosis, is similar to prior, without hydroureter, favoring to be related to a chronic/congenital UPJ obstruction. No ureteral stone. There is increased left perinephric fat stranding and free fluid. Electronically signed by Gerardo Betancur 02-08-2025 6:38 PM Discharge Plan Visit Data Chief Complaint: Flank Pain Stated Complaint: PAIN IN LT SIDE ED Provider: Herman Villalobos Discharge Problem: Intractable abdominal pain, UPJ (ureteropelvic junction) obstruction, Left flank pain, Diarrhea Patient Disposition: Admitted As Inpatient Condition: Fair Discharge Instructions Interventions: ED Discharge Assessment Last Done: 02/08/25 20:54 Discharge Problem: Diarrhea Qualifiers: Diarrhea type: unspecified type Qualified Code(s): R19.7 - Diarrhea, unspecified
[2025-02-08 16:14] LABS: Appearance Urine Clear (Clear); Bacteria Urine Automated None Seen (None Seen); Cast Urine Automated 0-2 /lpf (0-2); Epithelial Cell Urine Auto 0-2 /hpf (0-2); Glucose Urine UA Negative (Negative); RBC Urine Automated 0-2 /hpf (0-2); WBC Urine Automated 0-5 /hpf (0-5)
[2025-02-08 16:27] LABS: INR 1.0 (0.9-1.1); Prothrombin Time 10.9 Seconds (9.0-12.0)
[2025-02-08] MEDS: MoRPHine SULFATE 10 MG/ML CARP/VIAL IV STA ×2 (17:13→19:29)
[2025-02-08] MEDS: OPTIRAY 320 100ml IV ONE (18:08)
--- NOTE | 2025-02-08 18:39 | CT Scan Report ---
EXAMINATION: CT of the abdomen and pelvis performed after the administration of IV contrast TECHNIQUE: Helical CT images from the lung bases through the symphysis pubis were obtained with contrast. Coronal and sagittal reformatted images were generated at a workstation for further assessment. Dose reduction techniques were achieved by using automatic exposure control and/or adjustment of mA and/or kV according to patient size and/or use of iterative reconstruction technique. COMPARISON: 09/03/2024, 01/03/2024 HISTORY: Abdominal pain FINDINGS: Lower chest: No consolidation. No pleural effusion or pneumothorax. Liver: No suspicious liver lesions. Portal veins appear patent. Gallbladder: Cholecystectomy Spleen: Normal size. Pancreas: No suspicious pancreatic lesions. The pancreatic duct is not dilated. Adrenal glands: No adrenal nodules. Kidneys: Right-sided renal cyst again seen. Severe left hydronephrosis again seen. There is left perinephric fat stranding and free fluid which is increased from prior. No hydroureter or ureteral stone. Bladder / Pelvic organs: Unremarkable. Bowel: No bowel obstruction. No abnormal bowel wall thickening. The appendix is unremarkable. Lymph nodes: No retroperitoneal, mesenteric, or pelvic lymphadenopathy. Peritoneum / Retroperitoneum: No free fluid or air within the abdomen. Vessels: No infrarenal aortic aneurysm. Bones and soft tissues: No suspicious lesion in the bones. IMPRESSION: Severe left hydronephrosis, is similar to prior, without hydroureter, favoring to be related to a chronic/congenital UPJ obstruction. No ureteral stone. There is increased left perinephric fat stranding and free fluid. Electronically signed by Gerardo Betancur 02-08-2025 6:38 PM
[2025-02-08] MEDS: KETOROLAC TROMETHAMINE 15 MG/ML VIAL IV STA (19:29)
--- NOTE | 2025-02-08 19:43 | History & Physical Report ---
Date of Service February 08, 2025 Assessment & Plan (1) Hydronephrosis of left kidney: (2) UPJ obstruction, congenital: (3) Pyelonephritis of left kidney: (4) Intractable abdominal pain: Plan Patient is a 65-year-old female past medical history of hypothyroidism, GERD, type II DM, HTN, seizure, chronic UPJ obstruction. Patient presented due to left flank and abdominal pain that has gradually worsened throughout the day today as well as associated chills and nausea. Diagnostic imaging revealed severe left hydronephrosis secondary to chronic UPJ obstruction as well as increase in left perinephritic fat stranding, laboratories unremarkable. Patient is being admitted given intractable abdominal pain. #left hydronephrosis/chronic UPJ obstruction/left pyelonephritisAP CT with increase in left perinephritic fat stranding however no leukocytosis and UA unremarkable. S/p left pyeloplasty 02/2021. - we will treat with ABX given severe painstranding seen on imaging Given Rocephin 2G IV in the ED; given history of ESBL E. coli (susceptible to Zosyn) and variety of positive cultures will transition to Zosyn, tolerated in the past - follow blood and urine cultures Pain control with scheduled p.o. Tylenol, Dilaudid as needed for breakthrough pain Will avoid further NSAIDs - IVF with LR @ 100 ml/hr x 2l ordered Nausea control Zofran as needed Trend BMP and CBC Will defer urology consult at this time as likely no acute surgical management given this is a chronic diagnoses. Patient has referral placed to Dr. Barlow ([facility] urology) and appointment with urologist Dr. Mendoza in March. If patient clinically declines, could consider inpatient urology eval. #hypokalemiaK+ 3.5, renal function stable. 40 mEq p.o. KCl ordered Magnesium level ordered Trend BMP #HTNno medical management at home. BP elevated on admission likely 2/2 pain - Pain control as above #HLDholding baby aspirin for potential surgical management if patient declines #Type II DMholding Zully (injections on Sundays, due 02/08). Defer SSI. #GERDcontinue PPI VTE ppx: SCDs, low risk Dispo: med surg with continuous pulse ox (with IV opioid use) Admission and Anticipated Discharge Date Admission Date: 02/08/25 History of Present Illness Chief Complaint: flank pain Primary Care Provider: SARA Wilkins Patient is a 65-year-old female past medical history of hypothyroidism, GERD, type II DM, HTN, seizure, chronic UPJ obstruction. Patient presented due to left flank and abdominal pain that has gradually worsened throughout the day today as well as associated chills and nausea. Diagnostic imaging revealed severe left hydronephrosis secondary to chronic UPJ obstruction as well as increase in left perinephritic fat stranding, laboratories unremarkable. Patient stated today around 1230 she developed weakness and chills. Weight from (slightly psychomotor dermatologic abdominal swelling is lower abdominal pain near her bladder. She denies any right sided pain. She also endorses feeling nausea, denies any vomiting. Patient was admitted from 09/04 to 09/02/2022 with a similar presentation however UA appeared positive at that time and she was treated with ciprofloxacin. She had eval during that admission by urology who did not opt for surgical management. They referred her to [facility] urologist Dr. Barlow For possible reconstruction however patient stated he was working several months out and she has not yet establish care with them. She does have an appointment with urologist, Dr. Mendoza at the end of March. She denies any dysuria, increase in urinary frequency, hematuria, vomiting, fevers. She did not take any medications at home for pain; notes she is ordered prescription ibuprofen however stated she does not take this. She denies nicotine or alcohol use. She wishes to be full code. Patient is still significantly tender on exam, left abdominal region after 16 mg of IV morphine, 1G IV Tylenol, and 15 mg IV Toradol in the ED. She is due for her Mounjaro this evening. Past medical records reviewed. Patient was admitted from 05/25 to 05/27 for seizure-like activity now had a eval by neurology determined that she did not need to be started on any antiepileptic type medications. She has had no seizures since. Allergies Allergy/AdvReac Type Severity Reaction Status Date / Time Penicillins Allergy Severe Tongue Verified 01/20/25 09:26 swelling, hives Sulfa (Sulfonamide Allergy Severe Tongue Verified 01/20/25 09:26 Antibiotics) swelling, hives amoxicillin Allergy Unknown Tongue Verified 01/20/25 09:26 swelling, blistering metformin AdvReac Intermediate GI distress Verified 01/20/25 09:26 rosuvastatin AdvReac Intermediate Muscle Pain Verified 01/20/25 09:26 Sulfate Allergy Severe Tongue Uncoded 01/20/25 09:26 swelling, hives Home Medications Medication Instructions Recorded Confirmed Type docusate sodium 100 mg capsule 100 mg PO DAILY PRN Constipation 12/27/23 02/08/25 History (Stool Softener) multivitamin-ferrous 1 tab PO DAILY 03/03/24 02/08/25 History fumarate-folic acid 18 mg-400 mcg tablet (Centrum Women) pantoprazole 40 mg tablet,delayed 40 mg PO QAM #90 tabs 04/11/24 02/08/25 Rx release cholecalciferol (vitamin D3) 50 50 mcg PO DAILY 04/25/24 02/08/25 History mcg (2,000 unit) tablet (Vitamin D3) conjugated estrogens 0.625 mg/gram 0.625 mg vaginal UD 04/25/24 02/08/25 History vaginal cream (Premarin) aspirin 81 mg tablet,delayed 81 mg PO DAILY #90 tabs 05/27/24 02/08/25 Rx release ibuprofen 600 mg tablet 600 mg PO BID PRN Pain #90 tabs 07/02/24 02/08/25 Rx tirzepatide 7.5 mg/0.5 mL 7.5 mg (0.5 mL) subcut Q7D #2 mL 09/17/24 02/08/25 Rx subcutaneous pen injector (Zully) betamethasone dipropionate 0.05 % 1 applic topical BID #45 grams 01/20/25 02/08/25 Rx topical ointment Past Med/Surg History Problem List (Updated 02/09/25 @ 00:56 by Herman Villalobos MD) Diarrhea (Acute) Pyelonephritis of left kidney UPJ obstruction, congenital Hydronephrosis of left kidney Left flank pain (Acute) Intractable abdominal pain (Acute) Type 2 diabetes mellitus UPJ (ureteropelvic junction) obstruction (Acute) Pyelonephritis of left kidney (Acute) Positive GORGE (antinuclear antibody) PAC (premature atrial contraction) Seizure-like activity Syncope (Acute) Seizure (Acute) Abnormal stress test Lumbar spondylolysis Umbilical hernia Hypertension Ureteral stricture Coronary artery calcification Arthritis, multiple joint involvement Vaginal prolapse Prolapse of bladder Cystocoele Splenomegaly Medical History Eczema Coccydynia Kidney stone Hx Gross hematuria Bronchitis Seasonal hx, reason for inhaler PRN per pt, no recent issues/inhaler use Splenomegaly pt denies/unaware Hx of hydronephrosis Dyslipidemia Hx of chest pain early 2023, cardiac work up was negative, followed with [facility] [place] [facility] and discharged from their care Hypertension hx of medication, no current medication and states it is stable. History of bronchitis Seasonal hx, reason for inhaler PRN per pt, no recent issues/inhaler use Chronic back pain constant back pain for the last year, unsure cause - currently doing physical therapy weekly Abdominal pain "comes and goes" Constipation and diarrhea Rectal prolapse currently has physical therapy weekly Arthritis Depression Hx Thyroid nodule s/p biopsy (benign) Hypothyroidism Remote hx, euthyroid labs/no meds GERD (gastroesophageal reflux disease) controlled Surgical History H/O pyloroplasty S/P foot surgery, right achilles tendon repair History of pyeloplasty (2020) left - with Dr. 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); Do You Dip or Chew Tobacco: No; Hx Alcohol Use: No Hx Substance Use: No Preferred Language: Welsh Communication Ability: Effective Visual Impairment: No Limitations Hearing Ability: Normal Script Editor Required: No Beliefs That Will Affect Care: None marital status: Current Living Situation: Alone current occupational status: employed current occupation: after school program coordinator How many Children do You have: 2 Feels Safe at Home: Yes Childhood Exposure to Second-Hand Smoke: No Diet: regular caffeine: No during the past year weight has: remained stable Dental Care, Regularly: Yes Physical Activity Frequency: Daily Physical Activity Frequency Comment: housework; yard work; babysits Seatbelt Use: always Sunscreen Use: Yes Assistive Devices: None Review of Systems Review of Systems: see HPI Physical Exam Physical Exam: The patient is awake, alert and oriented 3, well developed and well nourished, normocephalic and atraumatic, in no acute distress. Non-toxic appearing. HEENT- EOMI, mucous membranes moist. Hearing grossly intact. Heart-normal S1 and S2. No murmurs, rubs or gallops. Lungs-clear bilaterally, no respiratory distress, no accessory muscle use. Abdomen-normal bowel sounds and soft. No ascites noted. Tender LUQ and left flank. Extremities- no clubbing, cyanosis, or edema. Rheumatologic-normal range of motion. Psychiatric-normal affect. Results & Data Results & Data Vital Signs (Past 12 Hours) Vital Signs Temp Pulse Resp BP Pulse Ox O2 Del Method 02/08/25 18:47 87 02/08/25 18:24 60 16 182/90 H 97 02/08/25 17:00 62 15 96 02/08/25 16:45 60 19 95 02/08/25 16:07 63 02/08/25 16:06 58 L 14 94 02/08/25 15:12 36.6 C 70 18 217/98 H 96 Room Air Laboratory Results Reviewed CBC, PT/INR, CMP, lipase, UA Diagnostic Findings reviewed AP CT Medications Administered ED - morphine 4 mg IV, morphine 6 mg IV x 2, Tylenol 1G IV, Toradol 15 Mg IV, 1.5 L NSS bolus, Zofran 4 Mg IV, Rocephin 2G IV ECG Additional Comments: ordered Code Status & VTE Plan Code Status full code VTE Prophylaxis Plan VTE Prophylaxis will be ordered: Yes Supervising Physician Co-Signing Physician Notes Attending addendum I have seen and supervised the ANDRES's medical activities, and agree with the notes unless otherwise stated The patient is a 65 year old female with PMH including hypothyroidism, GERD, DM type 2, HTN., seizure, and chronic UPJ obstruction. The patient presented to the ED with complaint of left flank and abdominal pain, fevers, chills, and nausea that has gradually worsened throughout the day. CT revealed severe left hydronephrosis secondary to chronic UPJ obstruction, and an increase in perinephric stranding. The patient is referred to the [place] [facility] for admission for intractable abdominal pain. Left Hydronephrosis/chronic UPJ obstruction/left pyelonephritis- History of ESBL E. coli infection Given Ceftriaxone in the ED Zosyn 4.5 IV q8h LR at 80 mls/hr Pain control with tylenol and Dilaudid as noted Zofran IV for nausea as noted Serial CBCD and BMP Patient has a referral already in place to Dr. Barlow with [facility], and pending appt. with Dr. Mendoza in March Remaining orders and notations as noted PG Care Time/CCT Total # of Minutes Spent Total Time Spent with Patient: Total time spent is greater than 50% in coordination of care (as documented) at patient's floor/unit and/or counseling patient: Coding Level of Care Code 48932 INT INP/OBS CARE 3/75MIN Diagnoses Hydronephrosis of left kidney N13.30 UPJ obstruction, congenital Q62.39 Pyelonephritis of left kidney N12 Intractable abdominal pain R10.9
[2025-02-08] MEDS: cefTRIAXone SODIUM 2,000 MG/50 ML BAG IV STA (20:23)
[2025-02-08] MEDS: SODIUM CHLORIDE 0.9% 500 ML IV ONE (20:23)
[2025-02-08 20:49] LABS: Magnesium 2.0 mg/dl (1.7-2.4)
[2025-02-08] MEDS ORDERED: MELATONIN 3 MG TAB PO PRN (21:24)
[2025-02-08] MEDS ORDERED: HYDROmorphone INJ 1 MG/ML SYRINGE IV PRN (21:24)
[2025-02-08] MEDS ORDERED: ONDANSETRON INJ 2 MG/ML 2 ML VIAL IV PRN (21:24)
[2025-02-08] MEDS ORDERED: DOCUSATE SODIUM 100 MG CAP PO PRN (21:24)
[2025-02-08] MEDS: LACTATED RINGER'S 1,000 ML IV SCH (22:13)
[2025-02-08] MEDS: POTASSIUM CHLORIDE CRTAB 20 MEQ TABCR PO STA (22:13)
[2025-02-08] MEDS: ACETAMINOPHEN 325 MG TAB PO SCH (22:14)
[2025-02-08] MEDS: HYDROmorphone INJ 0.5 MG/0.5 ML SYR IV PRN (22:21)
[2025-02-08] MEDS: PIPERACILLIN/TAZOBACTAM 4.5 GM/100 ML BAG IV ONE (22:21)
[2025-02-09] MEDS: PIPERACILLIN/TAZOBACTAM 4.5 GM/100 ML BAG IV SCH (04:08)
[2025-02-09 07:23] LABS: Hematocrit (blood only) 34.6 % (37.0-47.0); Hemoglobin 11.2 g/dl (12.0-16.0); Mean Corpuscular Hemoglobin 28.6 pg (25.0-34.0); Mean Corpuscular Volume 88.3 fL (80.0-100.0); Platelet Count 100 K/uL (130-400); RDW Standard Deviation 42.1 fL (36.4-46.3); Red Blood Count 3.92 M/uL (4.20-5.40); White Blood Count 4.55 K/ul (4.8-10.8)
[2025-02-09 07:39] LABS: Anion Gap 3.0 (3-11); Blood Urea Nitrogen 15.0 mg/dl (6-23); Calcium 8.7 mg/dl (8.6-10.3); Carbon Dioxide 29.0 mmol/L (21-32); Chloride 108.0 mmol/L (98-107); Creatinine Clr Calc Pharmacy 66.7 ml/min; Glucose 91.0 mg/dl (70-99(Fasting)); Potassium 4.3 mmol/L (3.5-5.1); Sodium 140.0 mmol/L (136-145)
[2025-02-09 07:51] VITALS: O2SAT 97
--- NOTE | 2025-02-09 13:41 | Electrocardiogram Report ---
Test Reason : Blood Pressure : */* mmHG Vent. Rate : 64 BPM Atrial Rate : 64 BPM P-R Int : 192 ms QRS Dur : 94 ms QT Int : 392 ms P-R-T Axes : 59 -4 64 degrees QTcB Int : 404 ms Normal sinus rhythm Minimal voltage criteria for LVH, may be normal variant Poor R wave progression, consider anterior NM vs. lead placement vs. LVH Abnormal ECG When compared with ECG of 04-Sep-2024 02:44, No significant change was found Confirmed by Gerardo Lee ([id number] on 02/09/2025 1:40:30 PM Referred By: REFERRED SELF Confirmed By: Gerardo Lee
[2025-02-09 15:21] VITALS: BP 123/73; PULSE 56; RESP 18; TEMP 97.9
--- NOTE | 2025-02-09 16:48 | Discharge Summary ---
Discharge Summary Date of Service February 09, 2025 Principal Dx & Hospital Course #1 = Principal Diagnosis (1) Hydronephrosis of left kidney: (2) UPJ obstruction, congenital: (3) Pyelonephritis of left kidney: (4) Intractable abdominal pain: Plan Patient is a 65-year-old female past medical history of hypothyroidism, GERD, type II DM, HTN, seizure, chronic UPJ obstruction. Patient presented due to left flank and abdominal pain that has gradually worsened throughout the day today as well as associated chills and nausea. Diagnostic imaging revealed severe left hydronephrosis secondary to chronic UPJ obstruction as well as increase in left perinephritic fat stranding, laboratories unremarkable. Patient is being admitted given intractable abdominal pain. Patient is without chills, fever or intractable abdominal/bilateral flank pain since admission. She has only required routine scheduled Tylenol for pain control. UA unremarkable with prelim UC: no growth. She has tolerated liquids/food without nausea/vomiting. She is clinically stable for discharge and has demonstrated no clinical decompensation during her course of hospitalization requiring no urology consultation. #left hydronephrosis/chronic UPJ obstruction/left pyelonephritisAP CT with increase in left perinephritic fat stranding however no leukocytosis and UA unremarkable. S/p left pyeloplasty 02/2021. Follows with [facility]- scheduled follow up in March, had tried to secure appointment with [facility] urology but 6m booked out Given Rocephin 2G IV in the ED; given history of ESBL E. coli switched to Zosyn on admission and given 3 IV doses -Prelim UC with no growth, no need for d/c antibiotics -pain controlled with po Tylenol, required no Dilaudid dosing for pain -avoidance of NSAIDs -IVF with LR @ 100 ml/hr x 2L -Nausea control Zofran as needed -CBC with no leukocytosis on d/c, Cr WNL on d/c -urology consult deferred as patient has known hx of chronic left hydronephrosis without hydroureter r/t chronic/congenital UPJ obstruction #hypokalemiaK+ 3.5, renal function stable -repleted and stable on d/c #HTNno medical management at home, elevated upon admission, downtrended with pain control #HLD -aspirin held on admission for possible surgical intervention -may resume aspirin on d/c #Type II DM -resume [place] on d/c #GERD -cont PPI on d/c Dispo: discharge home with urology follow up Admission HPI Per Admitting Provider Patient is a 65-year-old female past medical history of hypothyroidism, GERD, type II DM, HTN, seizure, chronic UPJ obstruction. Patient presented due to left flank and abdominal pain that has gradually worsened throughout the day today as well as associated chills and nausea. Diagnostic imaging revealed severe left hydronephrosis secondary to chronic UPJ obstruction as well as increase in left perinephritic fat stranding, laboratories unremarkable. Patient stated today around 1230 she developed weakness and chills. Weight from (slightly psychomotor dermatologic abdominal swelling is lower abdominal pain near her bladder. She denies any right sided pain. She also endorses feeling nausea, denies any vomiting. Patient was admitted from 09/04 to 09/02/2022 with a similar presentation however UA appeared positive at that time and she was treated with ciprofloxacin. She had eval during that admission by urology who did not opt for surgical management. They referred her to [facility] urologist Dr. Barlow For possible reconstruction however patient stated he was working several months out and she has not yet establish care with them. She does have an appointment with urologist, Dr. Mendoza at the end of March. She denies any dysuria, increase in urinary frequency, hematuria, vomiting, fevers. She did not take any medications at home for pain; notes she is ordered prescription ibuprofen however stated she does not take this. She denies nicotine or alcohol use. She wishes to be full code. Patient is still significantly tender on exam, left abdominal region after 16 mg of IV morphine, 1G IV Tylenol, and 15 mg IV Toradol in the ED. She is due for her Mounjaro this evening. Past medical records reviewed. Patient was admitted from 05/25 to 05/27 for seizure-like activity now had a eval by neurology determined that she did not need to be started on any antiepileptic type medications. She has had no seizures since. Discharge Exam GENERAL APPEARANCE: A&O. Sitting comfortably in bed. NAD. SKIN: Normal color without rashes or lesions. Normal turgor. HEENT: Head AT/NC. Buccal mucosa is moist and pink. NECK: No jugular venous distention. No thyroid enlargement. There is no lymphadenopathy. HEART: RRR without m/g/r LUNGS: Normal inspiratory effort. CTA without w/r/r. ABDOMEN: No guarding or rigidity. Normoactive BS in all four quadrants. Abdomen soft and NT. MSK: No bony gross/deformities throughout. ROM intact. EXTREMITIES: No edema, No peripheral cyanosis. Neuro: CN 2-12 grossly intact. No focal neuro deficits PSYCHIATRIC: Normal affect. Eye contact is good. Speech is normal rate and content. Responses are appropriate. Discharge Plan Discharge Items Patient Disposition: Home - Self-Care Reason For Visit: SEVERE LEFT HYDRONEPHROSIS, CHRONIC UPJ OBSTRUCTIO Discharge Diagnosis: Left hydronephrosis, chronic UPJ obstruction Condition on Discharge: Good Activity: Resume your previous activity Bathing: No limitations Weightbearing: Full weightbearing Non-emergency contact: Primary Care Provider and Urologist Call non-emergency contact if: you have any medication questions, your symptoms worsen, your pain is not controlled, your pain is concerning for you and you have a fever Follow-up/Referrals: Apollo Clayton CRNP [Primary Care Provider] - 02/11/25 8:20 am Gerardo Mendoza MD [Physician] - (Follow up as scheduled) Diet: Carb Consistent or DM2 Addtl Attending Provider Instructions: Lindsay, You were admitted to the hospital for a condition called hydronephrosis to your left kidney. You do have a history of this condition with follow up scheduled with [facility] in March. Please ensure you keep your follow up with [facility] for further management of your chronic conditions. Tylenol has been effective in treating your pain, therefore you can continue this at home. Medications: Your medication list has been reviewed and reconciled upon discharge to ensure accuracy and continuity of care. An updated list of all your medications is included with your hospital discharge paperwork. Please review this list closely, and make note of any changes. Take your medications as instructed; do not skip a dose of your medicines. Make sure all of your doctors know every medicine you are taking (including tgao-eih-kruoats medicines, vitamins, and supplements). Call your primary care provider before taking any new medicines (including over- the-counter medicines, vitamins, and supplements), because some of these may interact with your current medications, or may make your symptoms worse. Tell your primary care provider if you cannot afford your medications. Activity: You can do normal everyday activities as your body allows. Take rest breaks if you feel tired. Do not overexert. Stop activity if you have pain, shortness of breath or feel dizzy. Follow-up appointments: Make an appointment with your primary care physician within one week of discharge. A copy of this summary will be sent to them. Every time you see your primary care physician, or any other doctor, bring your medication list, and a list of questions. CONTACT YOUR PRIMARY CARE PROVIDER if you experience any of the following: Shortness of breath or difficulty breathing Fevers or chills Feeling tired with normal activity or experiencing dizziness or fainting Difficulty following your treatment plan, or difficulty taking medications CALL 911 OR GO TO THE EMERGENCY DEPARTMENT if you experience any of the following: Severe abdominal pain or nausea/vomiting Severe chest pain, or chest pain that radiates (moves) to your jaw or arm Sudden, severe shortness of breath or difficulty breathing Thank you for allowing us to participate in your care. Pending Studies at Discharge: Yes Studies:: Final urine culture pending Stand-Alone Forms: [facility], Work/School Release, Smoking Cessation Medications and DC Order Prescriptions: Continued pantoprazole 40 mg tablet,delayed release (DR/EC) 40 mg PO QAM Qty: 90 3RF ibuprofen 600 mg tablet 600 mg PO BID PRN (Reason: Pain) Qty: 90 1RF Mounjaro 7.5 mg/0.5 mL pen injector 7.5 mg subcut Q7D Qty: 2 5RF betamethasone dipropionate 0.05 % ointment 1 applic topical BID Qty: 45 1RF Rx Instructions: Apply to areas of the trunk and extremities twice daily for up to 2 weeks as needed for flaring Centrum Women 18-400 mg-mcg tablet 1 tab PO DAILY aspirin 81 mg tablet,delayed release (DR/EC) 81 mg PO DAILY Qty: 90 0RF Rx Instructions: purchase cicj-ymn-iwnbphl. Premarin 0.625 mg/gram Cream 0.625 mg VAGINAL UD Rx Instructions: TWICE PER WEEK cholecalciferol (vitamin D3) [Vitamin D3] 50 mcg (2,000 unit) Tablet 50 mcg PO DAILY Discharge Orders: Discharge Order (Routine); Ordered 02/09/25 Ordered By: Alyson Mcneil Admission Data Admit Date/Time: 02/08/25 19:54 Attending Provider: Gigi Cruz Admit Provider: Eliceo Mccoy Primary Care Provider: Apollo Clayton Other Interventions: Discharge Summary Assessment (RN) Last Done: 02/09/25 15:57 Hospital Stay Data Consultations 02/08/25 19:12 ED Decision to Admit Stat Diagnostic Imagining Performed 02/08/25 17:05 CT abd pelvis IV con only Stat Pending Results Patient Have Any Pending Studies at Discharge: Yes Discharge Instructions Given to Patient (Per Discharging Provider) Irvin Montoya were admitted to the hospital for a condition called hydronephrosis to your left kidney. You do have a history of this condition with follow up scheduled with [facility] in March. Please ensure you keep your follow up with [facility] for further management of your chronic conditions. Tylenol has been effective in treating your pain, therefore you can continue t his at home. Medications: Your medication list has been reviewed and reconciled upon discharge to ensure accuracy and continuity of care. An updated list of all your medications is included with your hospital discharge paperwork. Please review this list closely, and make note of any changes. Take your medications as instructed; do not skip a dose of your medicines. Make sure all of your doctors know every medicine you are taking (including imwc-bea-hpojeto medicines, vitamins, and supplements). Call your primary care provider before taking any new medicines (including over- the-counter medicines, vitamins, and supplements), because some of these may interact with your current medications, or may make your symptoms worse. Tell your primary care provider if you cannot afford your medications. Activity: You can do normal everyday activities as your body allows. Take rest breaks if you feel tired. Do not overexert. Stop activity if you have pain, shortness of breath or feel dizzy. Follow-up appointments: Make an appointment with your primary care physician within one week of discharge. A copy of this summary will be sent to them. Every time you see your primary care physician, or any other doctor, bring your medication list, and a list of questions. CONTACT YOUR PRIMARY CARE PROVIDER if you experience any of the following: Shortness of breath or difficulty breathing Fevers or chills Feeling tired with normal activity or experiencing dizziness or fainting Difficulty following your treatment plan, or difficulty taking medications CALL 911 OR GO TO THE EMERGENCY DEPARTMENT if you experience any of the following: Severe abdominal pain or nausea/vomiting Severe chest pain, or chest pain that radiates (moves) to your jaw or arm Sudden, severe shortness of breath or difficulty breathing Thank you for allowing us to participate in your care. Supervising Physician Co-Signing Physician Notes Attending Attestation & Discharge Note: Chart reviewed, discharge care plan d/w SARA Mcneil. I agree w/ the mcallister components of her discharge documentation with the following exception/clarification -- * clinical picture not c/w acute infectious left-sided pyelonephritis Of note - I did not perform a bedside visit or exam on day of discharge. 65yo female with hypothyroidism, GERD, type II DM, HTN, chronic left-sided UPJ obstruction. She underwent a robotic left-sided pyeloplasty performed by Dr. Gerardo Mendoza in February 2021. Presented with left flank and abdominal pain along with chills and nausea. u/a was unremarkable/not suspicious for UTI. CT a/p showed the following: "Severe left hydronephrosis, is similar to prior, without hydroureter, favoring to be related to a chronic/congenital UPJ obstruction. No ureteral stone. There is increased left perinephric fat stranding and free fluid." Ultimately blood & urine cultures were negative. Pain improved during her brief stay. Creatinine was stable during the brief hospitalization, and she had no leukocytosis or fever. Etiology of pain - due to ureteral spasm? other? She will need close f/u with urology for her chronic left-sided hydronephrosis / chronic left-sided UPJ obstruction. Gigi Curz MD Total Time Total Time Spent Total Time Spent (In Minutes): I spent a total of 50 minutes on the date of service in review of patient's record, and previously obtained information in person and appropriate medical visit, discussion and education of plan, with patient and/or caregiver, placing orders for tests/referral/procedures as medically necessary and documentation of pertinent clinical information in patient's medical records for their visit today. Coding Level of Care Code 24843 INP/OBS DISCH >30 MIN Diagnoses Hydronephrosis of left kidney N13.30 UPJ obstruction, congenital Q62.39 Pyelonephritis of left kidney N12 Intractable abdominal pain R10.9
== END 2025-02-09 16:42 | disposition home or self-care (01) ==
LOC: ED 14:53 → 3N 14:53 → SUATTDRO 19:54 → 3N 20:54